=== PATIENT | male | born 1945 | race Caucasian/White ===

== ENCOUNTER → 2017-05-07 11:10 | Outpatient (CLI) | payer MEDICARE, OTHER, SELFPAY ==
--- NOTE | 2017-05-07 | TOBX_PTH ---
PATIENT: BRUCE BNAUELOS LOC: [facility] U#:[id number] AGE/SX: 79/M ROOM: RE05/07/[address]: Dr. Carlos Nichols DDS : 1945 BED: DIS: SPEC #: [id number] RECD: 05/07/17 10:10 STATUS: DELFIN JENS #: [id number] HILDA: 05/07/17 00:[address]: Carlos Nicohls DEPT: SURGICAL PATHOLOGY RECD BY: Ovidio Saeed ENTERED: 05/07/17 12:04 SP TYPE: TONGUE BX OTHR DR: Dr. Praveen Brown MD Tissues: Tongue, NOS Procedures: Special Stain Group I Surgery Specimen Level IV GMS Stain (control) HEADER OPERATION: Biopsy, left tongue PRE-OP DIAGNOSIS: Rule out significant pathology TISSUE SUBMITTED: Left tongue MICROSCOPIC DIAGNOSIS Left tongue, biopsy: Squamous mucosa with subepithelial chronic inflammation, focal parakeratosis and hyperkeratosis. Negative for malignancy in the submitted specimen. Special stain for fungi is negative for organisms; matched control is appropriate. FEDERICA:blanco 05/08/17 COMMENT Please make reference to previous specimen ([id number]) right lateral tongue, biopsy with diagnosis of extensive hyperkeratosis, focal parakeratosis and acanthosis. MICROSCOPIC DESCRIPTION Slides are reviewed. GROSS DESCRIPTION Received in fixative is one container labeled with the patient's name and designated tongue. The specimen consists of a piece of schrader mucosal tissue measuring 0.6 x 0.6 x 0.2 cm. The specimen is inked and submitted entirely in one cassette. It will be bisected at the time of embedding. / Mari 05/07/17 TC:3 CPT: 31150, 78590
== END ==
PROVIDERS: Family Provider Family Medicine; PCP Family Medicine; Visit Provider Dentist Oral and Maxillofacial Surgery
DX: K13.29 Other disturbances of oral epithelium, including tongue (principal)
CPT/HCPCS: 88305; 88312

== ENCOUNTER → 2017-08-07 08:39 | Outpatient (CLI) | payer MEDICARE, OTHER, SELFPAY ==
[2017-08-07 12:13] LABS: Absolute Lymphocyte Count 1.63 X10^3/ul (0.83-4.51); Absolute Neutrophil Count 3.6 X10^3/uL (2.0-7.7); Basophil# 0.19 X10^3/uL; Basophil% 2.9 % (0-1); Eosinophil# 0.44 X10^3/uL; Eosinophils% 6.7 % (0-5); Hematocrit 39.8 % (40-54); Lymphocyte # 1.63 X10^3/ul (4.0); Lymphocyte % 24.8 % (19-41); Mean Corp Hgb Conc 32.7 g/gl (32-36); Mean Corpuscular Hgb 30.3 pg (27.0-32.0); Mean Corpuscular Volume 92.8 fL (80-94); Mean Platelet Vol. 10.1 fl (6.2-12.0); Monocyte# 0.68 X10^3/uL; Monocyte% 10.4 % (0-10); Neutrophil # 3.62 X10^3/uL (2.7-7.7); Platelet Count 277 K/mm3 (150-450); RBC Distribution Width CV 12.2 % (11.6-14.6); RBC Distribution Width SD 40.8 fl (35.1-43.9); Red Blood Count 4.29 M/mm3 (4.6-6.2); White Blood Count 6.6 K/mm3 (4.4-11.0)
[2017-08-07 12:17] LABS: POSITIVE COUNT NO; POSITIVE DIFFERENTIAL NO; POSITIVE MORPHOLOGY NO
[2017-08-07 12:42] LABS: Vitamin D,25 Hydroxy 36.2 ng/mL (29.95-100.01)
[2017-08-07 13:00] LABS: Anion Gap 6 (5-15); BUN 18 mg/dL (7-18); BUN/Creat Ratio 16.5 RATIO (10-20); Calcium,Total 8.7 mg/dL (8.5-10.1); Chloride 104 mmol/L (98-107); Creatinine, Serum 1.09 mg/dL (0.70-1.30); EST Glomerular Filtration Rate 71 mL/min (>60); Est Glom Filt Rate - Afr Amer 86 mL/min (>60); Ferritin 54 ng/mL (26-388); Glucose 93 mg/dL (74-106); Iron 57 ug/dL (65-175); Sodium Level 137 mmol/L (136-145); T4 Free Direct 1.28 ng/dL (0.76-1.46); Thyroid Stim Hormone (TSH) 1.86 uIU/mL (0.358-3.74)
== END ==
PROVIDERS: Family Provider Family Medicine; PCP Family Medicine; Visit Provider Family Medicine
DX: D64.9 Anemia, unspecified (principal); I10 Essential (primary) hypertension; E03.9 Hypothyroidism, unspecified; E55.9 Vitamin D deficiency, unspecified
CPT/HCPCS: 36415; 80048; 82306; 82728; 83540; 84439; 84443; 85025

== ENCOUNTER 2018-03-22 01:15 | Emergency (ER) | payer MEDICARE, OTHER, SELFPAY ==
[2018-03-22 01:17] VITALS: BP 112/71; PULSE 62; RESP 16; TEMP 36.4; O2SAT 98; BMI 24.6
[2018-03-22 01:21] VITALS: PULSE 62; O2SAT 98
--- NOTE | 2018-03-22 01:38 | EKG12_ITS ---
Test Reason : SYNCOPE Blood Pressure : / mmHG Vent. Rate : 061 BPM Atrial Rate : 061 BPM P-R Int : 206 ms QRS Dur : 092 ms QT Int : 446 ms P-R-T Axes : 035 -22 027 degrees QTc Int : 448 ms Normal sinus rhythm Minimal voltage criteria for LVH, may be normal variant Borderline ECG Confirmed by SONA MADRIGAL, ALFONSO ([id number]), senior editor JOVAN KIRAN ([id number]) on 03/25/2018 2:04:59 PM Referred By: CHANDAN Confirmed By:ALFONSO MAGALLANES MD
--- NOTE | 2018-03-22 01:45 | ED.DCSUM_ITS ---
History of Present Illness Chief Complaint: Syncope Informant: Patient, Family Onset: - - JPTA Timing: Lasts - 1-2 min Quality: passed out Current Severity: gone Maximum Severity: Severe Associated Symptoms: lightheadedness Narrative: Patient was in bed, got up to use the toilet, on the way to the bathroom started feeling lightheaded, he fell in the bathroom before getting to the toilet, heard him fall and he did not answer. She checked on him and he was on the floor and unresponsive. He slowly came to, is not sure if he was awake or not before appearing to lose consciousness again, he slowly regained consciousness she called EMS. He states he feels fine except for a laceration to the lip that he sustained during the fall, and he feels tired. He states last night, he had 3 hours of sleep because of insomnia. He had an unremarkable work today. He had some alcoholic beverages with dinner tonight with his , had some water today but not a lot of fluids otherwise. No cardiac history. No prodromal symptoms other than the lightheadedness. Has a history of a thoracic aortic aneurysm that has been monitored with imaging every 6 months. He denies having any chest discomfort or dyspnea before or after the episode tonight. Denies any headache. No other pain except for his lip. - Past Medical History (1) Ascending aortic aneurysm Status: Chronic (2) Bicuspid aortic valve Status: Chronic (3) Ectopic atrial rhythm Status: Chronic (4) Hyperlipidemia Status: Chronic (5) Hypertension Status: Chronic (6) Mitral valve prolapse Status: Chronic (7) Nonrheumatic aortic valve insufficiency Status: Chronic (8) Nonrheumatic aortic valve stenosis Status: Chronic (9) Nonrheumatic mitral valve insufficiency Status: Chronic Past Medical History - Allergies and Home Meds Allergies/Adverse Reactions: Allergies No Known Allergies Allergy (Verified 03/22/18 01:38) Primary Care Physician: Praveen Brown MD [Primary Care Provider] - 5 Days for suture removal Doctors: Dr. Craven Lives: Spouse/ Significant Other Smoking Status: Former smoker Alcohol: Occasional Review of Systems General: Reports: Malaise. Denies: Chills, Fever, Sweats Eyes: Denies: Visual changes - bilaterally, Diplopia ENT: Reports: - - lower lip pain/laceration; no dental pain. Denies: Sore throat Cardiovascular: Denies: Chest pain, Palpitations Respiratory: Denies: Dyspnea, Cough, Dyspnea on exertion Gastrointestinal: Denies: Abdominal pain, Nausea, Vomiting, Diarrhea, Melena, Hematochezia Genitourinary: Denies: Dysuria, Hematuria, Frequency Musculoskeletal: Denies: Back pain, Swelling, Extremity Pain Skin: Reports: Wounds - lip lac. Denies: Rash Neurological: Denies: Headache, Weakness, Numbness Endocrine: Denies: Polyuria, Polydipsia Physical Exam Vital Signs/Narrative: Vital Signs Temp Pulse Resp BP Pulse Ox 03/22/18 01:21 62 98 03/22/18 01:17 97.5 F L 62 16 112/71 98 Inital Vital Signs reviewed: Yes General: Well nourished, Well developed Head: Normocephalic, Atraumatic Eyes: Perrl, EOMI ENT: Moist mucous membranes, No rhinorrhea, TM's clear. Negative for: Sinus tenderness - or other midfacial tenderness. abrasion left zygomatic arch w/o tenderness. no dental injury. mucosal lower lip macerated laceration and external linear horizontal lower left lip laceration w/o jacob border involvement. Lacerations communicate, are through and through. External laceration 3 cm, mucosal laceration 2 cm. No trismus. Neck: Supple, Nontender Cardiovascular: Regular rate, Regular rhythm, No murmurs Respiratory: No distress, CTA bilaterally, Chest nontender Abdomen: Soft, Nontender, Nondistended, Normal bowel sounds Back: Nontender, Normal Inspection. Negative for: Spinal tenderness Extremities: Nontender, No edema, - - FROM throughout all 4 exts Skin: Normal color, No rash, Trauma - 3cm clean linear lower lip laceration, full thickness. Neurological: Alert, Oriented x3, Cranial nerves II-XII grossly intact, Normal Strength, Normal Sensation Psychological: Normal affect Diagnostic/Tx/Re-eval Impressions Chest X-Ray 03/22/18 02:10 IMPRESSION: Mild chronic obstructive and interstitial change with no evidence of acute cardiopulmonary disease. Electronically Signed: Horace Tavarez MD at 2:46 EST Tel , Service support , 03/22/18 02:10 Chest PA and Lateral [RAD] Stat Laboratory Results 03/22/18 03/22/18 03/22/18 01:46 01:46 01:57 WBC 6.1 RBC 4.06 L Hgb 12.7 L Hct 37.0 L MCV 91.1 MCH 31.3 MCHC 34.3 RDW 12.3 RDW Differential 39.7 Plt Count 188 MPV 9.6 Immature Gran % (Auto) 0.200 Neut % (Auto) 44.9 L Lymph % (Auto) 37.8 Redwood % (Auto) 7.7 Eos % (Auto) 7.0 H Baso % (Auto) 2.4 H Absolute Neuts (auto) 2.8 Absolute Lymphs (auto) 2.32 Total Counted Not Reportable Sodium 138 Potassium 3.7 Chloride 104 Carbon Dioxide 25.0 Anion Gap 9 BUN 22 H Creatinine 0.95 Estim Creat Clear Calc 71.32 Est GFR (MDRD) Af Amer 100 Est GFR (MDRD) Non-Af 83 BUN/Creatinine Ratio 23.1 H Glucose 104 Calcium 8.1 L Troponin I < 0.015 Urine Color Urine Clarity Urine pH Ur Specific [place]year Urine Protein Urine Glucose (UA) Urine Ketones Urine Occult Blood Urine Nitrite Urine Bilirubin Urine Urobilinogen Ur Leukocyte Esterase Urine RBC Urine WBC Ur Squamous Epith Cells Urine Bacteria Hyaline Casts Urine Mucus POC Glucose 99 03/22/18 02:04 WBC RBC Hgb Hct MCV MCH MCHC RDW RDW Differential Plt Count MPV Immature Gran % (Auto) Neut % (Auto) Lymph % (Auto) Redwood % (Auto) Eos % (Auto) Baso % (Auto) Absolute Neuts (auto) Absolute Lymphs (auto) Total Counted Sodium Potassium Chloride Carbon Dioxide Anion Gap BUN Creatinine Estim Creat Clear Calc Est GFR (MDRD) Af Amer Est GFR (MDRD) Non-Af BUN/Creatinine Ratio Glucose Calcium Troponin I Urine Color Yellow Urine Clarity Sl. Cloudy Urine pH 5.0 Ur Specific [place] 1.025 Urine Protein 30 H Urine Glucose (UA) Normal Urine Ketones Negative Urine Occult Blood Negative Urine Nitrite Negative Urine Bilirubin Negative Urine Urobilinogen Normal Ur Leukocyte Esterase Negative Urine RBC 0-5 SEEN Urine WBC 0-5 SEEN Ur Squamous Epith Cells 0 SEEN Urine Bacteria 0 SEEN Hyaline Casts 5-10 SEEN Urine Mucus 0 SEEN POC Glucose - Rhythm Strip Rhythm Strip: Sinus Rhythm Rate: 61 Ectopy: None - EKG Initial EKG Interpretation: Sinus Rhythm, No Acute Injury Pattern, - - leftward axis Prior: Unchanged - Medical Decision Making Labs and EKG are unremarkable, with the exception of prerenal azotemia and a normal creatinine. This is consistent with mild dehydration, and as he usually does drink a good amount of water every day, he did not today, then drink alcohol, and he is on verapamil. My suspicion is that with standing up quickly, being mildly dehydrated, and not having the ability to initiate a tachycardic reflex when becoming upright, he became lightheaded which led to a syncopal episode. He was given a liter of fluid and felt better. His laceration was repaired. It was through and through and all repaired, so placed on amoxicillin for infection prophylaxis, he is scheduled to go to the dentist in 4 days, and has a dose of amoxicillin to take the morning of, I will prescribe him medicine to get him up until that point, which should be sufficient. I think he is stable for discharge home and close outpatient follow-up, he is comfortable with that plan and feeling better when walking on discharge. Procedures - Lacerations lower lip Length: 5 cm - total Depth: Sub Q - [id number] Shape: Stellate - skin linear, mucosal is irregular Prep: Sterile Conditions, Shure-Clens, Chlorhexadine Laceration repair: Irrigated, Lidocaine - 5cc, Local Irrigated (ml): 60 Suture Information: Vicryl - 4-0 #2, deep/buried, Ethilon - 6-0 #7, external, Simple, - - chromic gut, 4-0 #2, mucosal Comment: total #11 sutures, 3 layers ED Disposition - Plan for ED Patient: Disposition: Home or Assisted Living Chief Complaint: Syncope Diagnosis: Syncope, Dehydration, Laceration of lip Instructions: ED Hypotension Orthostatic, ED Laceration Mouth Prescriptions: Amoxicillin [Amoxil] 500 mg PO Q8H #9 cap Referrals: Praveen Brown MD [Primary Care Provider] - 5 Days for suture removal Additional Instructions: Take prescribed amoxicillin until gone, then the doses that you were supposed to take Saturday morning as prescribed. Drink plenty of fluids next couple days.
[2018-03-22] MEDS: 0.9% Normal Saline 1,000 ML 999 ML IV (01:48)
[2018-03-22 01:53] VITALS: BP 115/66; BP 118/65; PULSE 59; PULSE 64
[2018-03-22 02:00] LABS: Absolute Lymphocyte Count 2.32 X10^3/ul (0.83-4.51); Absolute Neutrophil Count 2.8 X10^3/uL (2.0-7.7); Basophil# 0.15 X10^3/uL; Basophil% 2.4 % (0-1); Eosinophil# 0.43 X10^3/uL; Hemoglobin 12.7 g/dl (13.0-16.5); Lymphocyte # 2.32 X10^3/ul (4.0); Lymphocyte % 37.8 % (19-41); Mean Corp Hgb Conc 34.3 g/gl (32-36); Mean Corpuscular Hgb 31.3 pg (27.0-32.0); Mean Corpuscular Volume 91.1 fL (80-94); Mean Platelet Vol. 9.6 fl (6.2-12.0); Monocyte# 0.47 X10^3/uL; Monocyte% 7.7 % (0-10); Neutrophil # 2.76 X10^3/uL (2.7-7.7); Neutrophil % 44.9 % (47-70); POSITIVE COUNT NO; POSITIVE DIFFERENTIAL NO; POSITIVE MORPHOLOGY NO; Platelet Count 188 K/mm3 (150-450); RBC Distribution Width CV 12.3 % (11.6-14.6); RBC Distribution Width SD 39.7 fl (35.1-43.9); Red Blood Count 4.06 M/mm3 (4.6-6.2); White Blood Count 6.1 K/mm3 (4.4-11.0)
[2018-03-22 02:06] LABS: Bedside Glucose 99 mg/dL (70-110)
[2018-03-22 02:07] LABS: Bacteria 0 SEEN /hpf (None Seen); Mucous, Urine 0 SEEN /hpf (<or=2+); Squamous Epithelial Cells - UA 0 SEEN /hpf (0-5)
[2018-03-22 02:08] LABS: Color, Urine Yellow (Yellow); Glucose, Dipstick Normal (Normal); Ketone-Dipstick Negative (Negative); Leukocyte Esterase-Dipstick Negative /ul (Negative); Nitrite-Dipstick Negative (Negative); Occult Blood-Urine Negative /ul (Negative); Protein-Dipstick 30 mg/dl (Negative); Specific Gravity, Urine 1.025 (1.002-1.030); Urine Bilirubin Dipstick Negative (Negative); Urine Clarity Sl. Cloudy (Clear); Urine Urobilinogen Normal (Normal)
--- NOTE | 2018-03-22 02:10 | RAD_ITS ---
STUDY: X-RAY CHEST REASON FOR EXAM: Male, 72 years old. Status post syncope TECHNIQUE: PA and lateral views of the chest. COMPARISON: None. FINDINGS: Hyperexpansion of the lungs. Mild prominence of interstitial lung markings at the lung bases. No confluent airspace opacity. Calcified nodule in the left suprahilar region on the AP view and in the retrosternal clear space seen on the lateral view. No pleural effusion or pneumothorax. Normal size heart. Normal mediastinum and payton. Normal visualized pulmonary arteries. There is atherosclerotic calcification of the aortic arch . Normal visualized thoracic spine. Normal visualized ribs, clavicles, and shoulders. There is no demonstrated abnormality of the visualized soft tissue structures of the upper abdomen. RAD/Chest PA and Lateral IMPRESSION: Mild chronic obstructive and interstitial change with no evidence of acute cardiopulmonary disease. Electronically Signed: Horace Tavarez MD at 2:46 EST Tel , Service support ,
[2018-03-22 02:13] LABS: Anion Gap 9 (5-15); BUN 22 mg/dL (7-18); BUN/Creat Ratio 23.1 RATIO (10-20); Calcium,Total 8.1 mg/dL (8.5-10.1); Chloride 104 mmol/L (98-107); Creatinine, Serum 0.95 mg/dL (0.70-1.30); EST Glomerular Filtration Rate 83 mL/min (>60); Est Glom Filt Rate - Afr Amer 100 mL/min (>60); Estimated Creatinine Clearance 71.32 ml/min; Glucose 104 mg/dL (74-106); Potassium 3.7 mmol/L (3.5-5.1); Sodium Level 138 mmol/L (136-145)
[2018-03-22 02:18] LABS: Hyaline Cast 5-10 SEEN /lpf (0-5); Red Blood Cells-Urine 0-5 SEEN /hpf (0-5); White Blood Cells 0-5 SEEN /hpf (0-5)
[2018-03-22 03:24] VITALS: BP 104/63; PULSE 71; RESP 16; O2SAT 96
[2018-03-22 05:00] VITALS: BP 114/73; PULSE 72; RESP 17; O2SAT 94
[2018-03-22 06:49] VITALS: BP 121/74; PULSE 82; RESP 18; O2SAT 98
--- NOTE | 2018-03-22 06:50 | ED.RN ---
THIS NURSE REVIEWED D/C INSTRUCTIONS WITH PT AND . PT VERBALIZED UNDERSTANDING OF INSTRUCTIONS. IV D/C. IV CATHETER INTACT. PT TOLERATED WELL. PT DENIES FURTHER NEEDS OR QUESTIONS AT THIS TIME. PT ASSISTED OUT TO VEHICLE VIA W/C
--- OUTSIDE RECORDS SUMMARY | 2018-05-16 18:10 | XMS RPT_ITS ---
:1945 Author Organization OH[facility] Care Team Providers Name Role Phone Carlos Nichols Attending Unavailable Carlos Nichols Referring Unavailable Praveen Brown Primary Care Unavailable Praveen Brown Attending Unavailable Praveen Brown Primary Care Unavailable Norris Craven Attending Unavailable Praveen Brown Referring Unavailable Norris Craven Attending Unavailable Praveen Brown Referring Unavailable Glynn Penny Attending Unavailable Praveen Brown Referring Unavailable Praveen Brown Primary Care Unavailable JUANJO HAWLEY Attending Unavailable PROBLEMS PROBLEMS DATE TYPE CONDITION / CODE ATTENDING STATUS SOURCE 08/07/2017 Unknown D64.9 - Anemia, Praveen Brown Active [place] unspecified / Community D64.9(ICD-10) Hospital Repository 08/07/2017 Unknown I10 - Essential Praveen Brown Active [place] (primary) Community hypertension / Hospital I10(ICD-10) Repository 08/07/2017 Unknown E03.9 - Praveen Brown Active [place] Hypothyroidism, Community unspecified / Hospital E03.9(ICD-10) Repository 08/07/2017 Unknown E55.9 - Vitamin D Stephanie Praveen Active [place] deficiency, Community unspecified / Hospital E55.9(ICD-10) Repository PROCEDURES PROCEDURES No Procedure Records FoundRESULTS RESULTS 12 LEAD ELECTROCARDIOGRAM Observed: 03/25/2018 Status: F Source: [place] 2:05 PM [facility] REPOSITORY [facility] Cardiovascular Services [address] [place] [address] 12 Lead EKG 03/22/18 0122 MR#: [id number] Acct: [id number] Name: BRUCE BANUELOS Rep #: [id number] : 1945 72 From: Nate Jordan MD Attending Dr: Status: DEP ER Ordering Dr: Juanjo Hawley MD Date: 03/22/18 Location: ED Sex: M C Admitted: Test Reason : SYNCOPE Blood Pressure : / mmHG Vent. Rate : 061 BPM Atrial Rate : 061 BPM P-R Int : 206 ms QRS Dur : 092 ms QT Int : 446 ms P-R-T Axes : 035 -22 027 degrees QTc Int : 448 ms Normal sinus rhythm Minimal voltage criteria for LVH, may be normal variant Borderline ECG Confirmed by NATE JORDAN MD ([id number]), department editor JOVAN KIRAN ([id number]) on 03/25/2018 2:04:59 PM Referred By: CHANDAN Confirmed By:NATE JORDAN MD 03/25/18 1405 Date Nate Jordan MD CC: JUANJO HAWLEY MD; Praveen Brown MD Signed EMERGENCY DEPARTMENT Observed: 03/22/2018 Status: F Source: MANJU SUMMARY 6:18 AM [facility] Medical Records Department [address] [place] [address] Emergency Department Summary 03/22/18 0141 MR#: [id number] Acct: [id number] Name: BRUCE BANUELOS Rep #: [id number] : 1945 72 From: Juanjo Hawley MD PCP: Praveen Brown MD Status: REG ER History of Present Illness Chief Complaint: Syncope Informant: Patient, Family Onset: - - JPTA Timing: Lasts - 1-2 min Quality: passed out Current Severity: gone Maximum Severity: Severe Associated Symptoms: lightheadedness Narrative: Patient was in bed, got up to use the toilet, on the way to the bathroom started feeling lightheaded, he fell in the bathroom before getting to the toilet, heard him fall and he did not answer. She checked on him and he was on the floor and unresponsive. He slowly came to, is not sure if he was awake or not before appearing to lose consciousness again, he slowly regained consciousness she called EMS. He states he feels fine except for a laceration to the lip that he sustained during the fall, and he feels tired. He states last night, he had 3 hours of sleep because of insomnia. He had an unremarkable work today. He had some alcoholic beverages with dinner tonight with his , had some water today but not a lot of fluids otherwise. No cardiac history. No prodromal symptoms other than the lightheadedness. Has a history of a thoracic aortic aneurysm that has been monitored with imaging every 6 months. He denies having any chest discomfort or dyspnea before or after the episode tonight. Denies any headache. No other pain except for his lip. - Past Medical History (1) Ascending aortic aneurysm Status: Chronic (2) Bicuspid aortic valve Status: Chronic (3) Ectopic atrial rhythm Status: Chronic (4) Hyperlipidemia Status: Chronic (5) Hypertension Status: Chronic (6) Mitral valve prolapse Status: Chronic (7) Nonrheumatic aortic valve insufficiency Status: Chronic (8) Nonrheumatic aortic valve stenosis Status: Chronic (9) Nonrheumatic mitral valve insufficiency Status: Chronic Past Medical History - Allergies and Home Meds Allergies/Adverse Reactions: Allergies No Known Allergies Allergy (Verified 03/22/18 01:38) Primary Care Physician: Praveen Brown MD [Primary Care Provider] - 5 Days for suture removal Doctors: Dr. Craven Lives: Spouse/ Significant Other Smoking Status: Former smoker Alcohol: Occasional Review of Systems General: Reports: Malaise. Denies: Chills, Fever, Sweats Eyes: Denies: Visual changes - bilaterally, Diplopia ENT: Reports: - - lower lip pain/laceration; no dental pain. Denies: Sore throat Cardiovascular: Denies: Chest pain, Palpitations Respiratory: Denies: Dyspnea, Cough, Dyspnea on exertion Gastrointestinal: Denies: Abdominal pain, Nausea, Vomiting, Diarrhea, Melena, Hematochezia Genitourinary: Denies: Dysuria, Hematuria, Frequency Musculoskeletal: Denies: Back pain, Swelling, Extremity Pain Skin: Reports: Wounds - lip lac. Denies: Rash Neurological: Denies: Headache, Weakness, Numbness Endocrine: Denies: Polyuria, Polydipsia Physical Exam Vital Signs/Narrative: Vital Signs 03/22/18 01:21 62 98 03/22/18 01:17 97.5 F L 62 16 112/71 98 Inital Vital Signs reviewed: Yes General: Well nourished, Well developed Head: Normocephalic, Atraumatic Eyes: Perrl, EOMI ENT: Moist mucous membranes, No rhinorrhea, TM's clear. Negative for: Sinus tenderness - or other midfacial tenderness. abrasion left zygomatic arch w/o tenderness. no dental injury. mucosal lower lip macerated laceration and external linear horizontal lower left lip laceration w/o jacob border involvement. Lacerations communicate, are through and through. External laceration 3 cm, mucosal laceration 2 cm. No trismus. Neck: Supple, Nontender Cardiovascular: Regular rate, Regular rhythm, No murmurs Respiratory: No distress, CTA bilaterally, Chest nontender Abdomen: Soft, Nontender, Nondistended, Normal bowel sounds Back: Nontender, Normal Inspection. Negative for: Spinal tenderness Extremities: Nontender, No edema, - - FROM throughout all 4 exts Skin: Normal color, No rash, Trauma - 3cm clean linear lower lip laceration, full thickness. Neurological: Alert, Oriented x3, Cranial nerves II-XII grossly intact, Normal Strength, Normal Sensation Psychological: Normal affect Diagnostic/Tx/Re-eval Impressions Chest X-Ray 03/22/18 02:10 IMPRESSION: Mild chronic obstructive and interstitial change with no evidence of acute cardiopulmonary disease. Electronically Signed: Horace Tavarez MD at 2:46 EST Tel , Service support , 03/22/18 02:10 Chest PA and Lateral [RAD] Stat Laboratory Results WBC 6.1 RBC 4.06 L Hgb 12.7 L Hct 37.0 L MCV 91.1 MCH 31.3 MCHC 34.3 RDW 12.3 RDW Differential 39.7 - Rhythm Strip Rhythm Strip: Sinus Rhythm Rate: 61 Ectopy: None - EKG Initial EKG Interpretation: Sinus Rhythm, No Acute Injury Pattern, - - leftward axis Prior: Unchanged - Medical Decision Making Labs and EKG are unremarkable, with the exception of prerenal azotemia and a normal creatinine. This is consistent with mild dehydration, and as he usually does drink a good amount of water every day, he did not today, then drink alcohol, and he is on verapamil. My suspicion is that with standing up quickly, being mildly dehydrated, and not having the ability to initiate a tachycardic reflex when becoming upright, he became lightheaded which led to a syncopal episode. He was given a liter of fluid and felt better. His laceration was repaired. It was through and through and all repaired, so placed on amoxicillin for infection prophylaxis, he is scheduled to go to the dentist in 4 days, and has a dose of amoxicillin to take the morning of, I will prescribe him medicine to get him up until that point, which should be sufficient. I think he is stable for discharge home and close outpatient follow-up, he is comfortable with that plan and feeling better when walking on discharge. Procedures - Lacerations lower lip Length: 5 cm - total Depth: Sub Q - [id number] Shape: Stellate - skin linear, mucosal is irregular Prep: Sterile Conditions, Shure-Clens, Chlorhexadine Laceration repair: Irrigated, Lidocaine - 5cc, Local Irrigated (ml): 60 Suture Information: Vicryl - 4-0 #2, deep/buried, Ethilon - 6-0 #7, external, Simple, - - chromic gut, 4-0 #2, mucosal Comment: total #11 sutures, 3 layers ED Disposition - Plan for ED Patient: Disposition: Home or Assisted Living Chief Complaint: Syncope Diagnosis: Syncope, Dehydration, Laceration of lip Instructions: ED Hypotension Orthostatic, ED Laceration Mouth Prescriptions: Amoxicillin [Amoxil] 500 mg PO Q8H #9 cap Referrals: Praveen Brown MD [Primary Care Provider] - 5 Days for suture removal Additional Instructions: Take prescribed amoxicillin until gone, then the doses that you were supposed to take Saturday morning as prescribed. Drink plenty of fluids next couple days. What to do if you have Problems For any increased pain, shortness of breath, bleeding, nausea or vomiting, chest pain, or any unexpected problems, contact your Primary Care Provider. Call [facility] ([phone]) or report to the closest Emergency Room. Call 911 if necessary. 03/22/18 0618 <Electronically signed by Juanjo Hawley MD> Date Juanjo Hawley MD Cosigner Signature (If Indicated): Date CC: Praveen Brown MD URINALYSIS, COMPLETE Collected: 03/22/2018 Status: F Source: MANJU 2:04 AM [facility] REPOSITORY Order Comment: How was Urine Obtained? 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 Cloudy LAB L400.3200 Normal mg/dl Normal GLUCOSE, UR Normal LAB L400.3300 Negative mg/dL Normal BILIRUBIN URINE Negative LAB L400.3400 Negative mg/dl Normal KETONE UR Negative LAB L400.3465 1.002-1.030 Normal SP.GR. DIPSTX 1.025 LAB L400.3550 5.0 - 8.0 pH UR Normal 5.0 LAB L400.3600 Negative mg/dl High PROT 30 DIPSTX LAB L400.3700 Normal mg/dl Normal UROBILI Normal LAB L400.3750 Negative Normal NITRITE UR Negative LAB L400.3780 Negative /ul Normal OCCULT BLOOD-UR Negative LAB L400.3800 Negative /ul LEUK Normal ESTERASE Negative LAB L400.4050 0-5 /hpf WBC Normal 0-5 SEEN LAB L400.4100 0-5 /hpf Normal RBC-UA 0-5 SEEN LAB L400.4150 0-5 /hpf SQUAM 0 Normal EPI SEEN LAB L400.4300 None Seen /hpf 0 Normal BACTERIA SEEN LAB L400.4350 <or=2+ /hpf 0 Normal MUCUS, URINE SEEN LAB L400.4400 0-5 /lpf Normal HYALINE CAST 5-10 SEEN Performed By: #### L400.0001 #### [facility] [address] [place], [place], [address] BEDSIDE GLUCOSE Collected: 03/22/2018 Status: F Source: [place] 1:57 AM [facility] REPOSITORY TYPE CODE TESTS RESULT OUT OF RANGE REFERENCE UNITS LAB L501.080 70-110 mg/dL Normal BEDSIDE GLU 99 Result Comment: MANAGEMENT OF PATIENT CARE PER NURSING PROTOCOL Performed By: #### L501.080 #### [facility] Point of Care [address] [facility] [place] [address] CBC W/DIFF, AUTOMATED Collected: 03/22/2018 Status: F Source: [place] 1:46 AM [facility] REPOSITORY TYPE CODE TESTS RESULT OUT OF RANGE REFERENCE UNITS LAB L100.1000 4.4-11.0 K/mm3 Normal WBC 6.1 LAB L100.1200 4.6-6.2 M/mm3 Low RBC 4.06 LAB L100.1300 13.0-16.5 g/dl Low HGB 12.7 LAB L100.1400 40-54 % Low HCT 37.0 LAB L100.1500 80-94 fL Normal MCV 91.1 LAB L100.1600 27.0-32.0 pg Normal MCH 31.3 LAB L100.1700 32-36 g/gl Normal MCHC 34.3 LAB L100.1810 11.6-14.6 % Normal RDW CV 12.3 LAB L100.1820 35.1-43.9 fl Normal RDW SD 39.7 LAB L100.1900 150-450 K/mm3 Normal PLT 188 LAB L100.2000 6.2-12.0 fl Normal MPV 9.6 LAB L100.2100 47-70 % Low NEUT% 44.9 LAB L100.2200 19-41 % Normal LY% 37.8 LAB L100.2300 0-10 % Normal MONO% 7.7 LAB L100.2400 0-5 % High EO% 7.0 LAB L100.2500 0-1 % High BASO% 2.4 LAB L100.2550 0.0-0.9 % Normal IM GRAN % 0.200 Result Comment: IG% - Immature Granulocytes (promyelocytes, myelocytes and metamyelocytes) > 1% indicates that a LEFT SHIFT is Present. LAB L100.2620 2.0-7.7 X10 3/uL Normal Absolute Neut 2.8 LAB L100.2720 0.83-4.51 X10 3/ul Normal Absolute Lymph 2.32 Performed By: #### L100.0100 #### [facility] [address] [place], [place], [address] BASIC METABOLIC Collected: 03/22/2018 Status: F Source: [place] PROFILE (BMP) 1:46 AM [facility] REPOSITORY TYPE CODE TESTS RESULT OUT OF RANGE REFERENCE UNITS LAB L501.0100 74-106 mg/dL Normal GLU 104 Result Comment: Fasting Glucose result from 100 to 125 mg/dL suggests IMPAIRED HOMEOSTASIS per A.D.A. criteria. Please note revised GLUCOSE reference range effective 2017. LAB L501.1000 7-18 mg/dL High BUN 22 LAB L501.1100 0.70-1.30 mg/dL Normal CREAT,SERUM 0.95 Result Comment: The validity of the calculated GFR AND GFRAA in patients over 70 years has not been determined. Clinical correlation is essential. LAB L501.1110 >60 mL/min Normal EST GFR 83 Result Comment: Non- GFR Calc LAB L501.1115 >60 mL/min Normal EST GFR - AA 100 Result Comment: GFR Calc LAB L501.1255 ml/min Normal Estimated CRCL 71.32 LAB L501.1300 10-20 RATIO High BUN/CRE 23.1 LAB L501.2200 8.5-10 mg/dL Low .1 CA 8.1 LAB L501.5300 136-14 mmol/L Normal 5 NA 138 LAB L501.5600 3.5-5. mmol/L Normal 1 K 3.7 LAB L501.5900 98-107 mmol/L Normal CL 104 LAB L501.6100 21.0-3 mmol/L Normal 2.0 CO2 25.0 LAB L501.6200 5-15 Normal GAP 9 Performed By: #### L500.2500, L501.4010 #### [facility] [address] [place], [address] TROPONIN-I Collected: 03/22/2018 Status: F Source: [place] 1:46 AM [facility] REPOSITORY TYPE CODE TESTS RESULT OUT OF RANGE REFERENCE UNITS LAB L501.4010 <0.045 ng/mL Normal < 0.015 TROPONIN-I Result Comment: TROPONIN-I EXPECTED VALUES <0.045 Negative 0.045 - 0.590 Consistent with Cardiac Damage > OR = 0.600 Critical Value Not every elevated troponin is indicative of AZ. These values should be used with clinical judgement in examining the patient's clinical picture for diagnosis. To establish a diagnosis of AZ versus myocardial injury, there must be a demonstrated rise and/or fall in the troponin values, in addition to ischemic symptoms, EKG changes, new regional wall motion abnormality, and/or angiographical evidence. PLEASE NOTE: REFERENCE RANGES EDITED 17 Performed By: #### L500.2500, L501.4010 #### [facility] [address] [place], [address] CHEST PA AND LATERAL Observed: 03/22/2018 Status: F Source: [place] 1:41 AM [facility] REPOSITORY [facility] Imaging Services [address] [place] [address] Chest PA and Lateral MR#: [id number] Acct: [id number] Name: VINBRUCE Keivn Rep #: [id number] : 1945 M 72 From: Horace Tavarez MD PCP: Praveen Brown MD Status: REG ER Study: Chest PA and Lateral Date of Exam: 03/22/18 Exam# [id number] Ordering Dr: Juanjo Hawley MD STUDY: X-RAY CHEST REASON FOR EXAM: Male, 72 years old. Status post syncope TECHNIQUE: PA and lateral views of the chest. COMPARISON: None. FINDINGS: Hyperexpansion of the lungs. Mild prominence of interstitial lung markings at the lung bases. No confluent airspace opacity. Calcified nodule in the left suprahilar region on the AP view and in the retrosternal clear space seen on the lateral view. No pleural effusion or pneumothorax. Normal size heart. Normal mediastinum and payton. Normal visualized pulmonary arteries. There is atherosclerotic calcification of the aortic arch . Normal visualized thoracic spine. Normal visualized ribs, clavicles, and shoulders. There is no demonstrated abnormality of the visualized soft tissue structures of the upper abdomen. RAD/Chest PA and Lateral IMPRESSION: Mild chronic obstructive and interstitial change with no evidence of acute cardiopulmonary disease. Electronically Signed: Horace Tavarez MD at 2:46 EST Tel , Service support , CC: JUANJO HAWLEY MD; Praveen Brown MD [employer]: Signed CARDIOLOGY VISIT Observed: 10/24/2017 Status: F Source: [place] REPORT 4:03 PM [facility] REPOSITORY [facility] [address] [place] [address] OFFICE VISIT Date of Service: 10/24/17 MR#: [id number] Acct: [id number] Name: BRUCE BANUELOS Rep #: [id number] : 1945 Provider: CELSO Penny Age/Sex: 71/M Location: [facility] Status: Signed HPI HPI Details: BRUCE BANUELOS, is a 71 M who presents to the office today for a cardiovascular outpatient follow-up. He has history of acsending aortic aneurysm, valvular heart disease with bicuspid aortic valve and aortic valve stenosis and aortic valve insufficiency, mitral valve prolapse with mitral valve regurgitation, ectopic atrial rhythm with transient 2-1 AV block, hypertension, and hyperlipidemia. Pt. denies chest, arm, jaw, or neck discomfort. His exercise tolerance is stable. Pt. denies symptoms of CHF, palpitations, lightheadedness, dizziness, near syncope, or syncopal episodes. Pt. denies edema or claudication issues. Pt. denies orthopnea, PND, fever, chills, blood in urine, blood in stool, myalgia, or unexplainable fatigue. He states waking up in the middle night with his right hand going numb. 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 Is patient in pain?: No Allergies No Known Allergies Allergy (Unverified 10/24/17 15:03) Medications aspirin 81 mg chewable tablet 81 mg PO QDAY #90 tab 10/01/17 [Rx Confirmed 10/24/17] cholecalciferol (vitamin D3) 2,000 unit capsule 2,000 unit PO QDAY #90 cap 10/01/17 [Rx Confirmed 10/24/17] levothyroxine 100 mcg tablet 100 mcg PO QDAY #90 tab 10/01/17 [Rx Confirmed 10/24/17] prazosin 5 mg capsule 5 mg PO QDAY #90 cap 10/01/17 [Rx Confirmed 10/24/17] ramipril 5 mg capsule 5 mg PO QDAY #90 cap 10/01/17 [Rx Confirmed 10/24/17] verapamil ER (SR) 120 mg tablet,extended release 120 mg PO QDAY #90 tab 10/01/17 [Rx Confirmed 10/24/17] vitamin B complex tablet 1 tab PO QDAY #90 tab 10/01/17 [Rx Confirmed 10/24/17] calcium 600 mg-D3 800 unit-mag11 50 pu-nvmf-ehxljr-austin-s.borat tablet 1 tab PO QDAY tab 10/24/17 [History] [facility] Medical History Ectopic atrial rhythm (Chronic) Mitral valve prolapse (Chronic) Nonrheumatic mitral valve insufficiency (Chronic) Nonrheumatic aortic valve insufficiency (Chronic) Nonrheumatic aortic valve stenosis (Chronic) Bicuspid aortic valve (Chronic) Ascending aortic aneurysm (Chronic) Surgical History Right shoulder (Resolved 2014) Family History Father CAD (coronary artery disease) Mother Liver carcinoma Social History Smoking Status: Former smoker ROS Const Const: Negative for weakness, body ache, fever(s), chills or fatigue ENT ENT: Negative for dizziness Cardio Chest Pain: No Palpitations: No Edema: None Muscle aches with walking: None Resp Respiratory: Negative for SOB with activity, SOB at rest, SOB orthopnea\SOB lying down or paroxysmal nocturnal dyspnea GI GI: Negative nausea, black,tarry stools, bright, red blood in stools or vomiting blood/hematemesis : Negative for hematuria or frequent nighttime urination/ nocturia Musc Musc: Negative for muscle aches/ myalgia Skin Skin: Negative non-healing lesions or rash Neuro Neuro: Positive for other (right arm numbness ); negative for lightheadedness, near syncope, syncope, orthostatic symptoms, weakness or dizziness Endo Endo: Negative for fatigue Allergy Allergy/Immunology: Negative for rash Cardiology Exam Const Appearance: cooperative, healthy appearing, comfortable and no acute distress Orientation: alert, awake and oriented x3 Head Head: normal to inspection Ears: hearing grossly normal bilaterally Nose: external nose normal Face and Sinus: face symmetric Mouth: oral mucosae normal Eyes General: appearance normal, both eyes and all related structures Eyelids: eyelids normal Neck Neck: no JVD and normal visual inspection Carotids: normal carotid upstroke Chest Chest inspection: normal inspection of the chest and normal respiratory effort; negative cough Auscultation: Bilateral: Clear to Auscultation Cardio Rate: regular rate Rhythm: regular rhythm Heart sounds: S1 normal, S2 normal and murmur; negative rub or gallop Murmur: Grade 2/6, LLSB and RLSB GI GI: normal to inspection Neuro General: alert, awake, oriented x3 and CN's II-XI intact bilaterally Skin Skin: no rashes or lesions noted Extremities Pulses: Normal: Right Posterior Tibial Pulse, Left Posterior Tibial Pulse, Right Radial Pulse, Left Radial Pulse Lower Extremity Edema: None: Bilateral Psych Psychological: normal affect Supplemental Info Echocardiogram from June 2015 showed an estimated ejection fraction of 65%, apical false tendon noted, mildly enlarged left atrium, mildly enlarged right atrium, hypermobile atrial septum, mild mitral valve prolapse, posterior leaflet, mild diffuse mitral thickening, mild to moderate mitral valve insufficiency, trivial tricuspid valve insufficiency, bicuspid aortic valve, moderate aortic stenosis, mild to moderately dilated aortic root of 4.3 cm, RVSP of 30 mmHg, and diastolic dysfunction. CT scan of chest with contrast in July 2016 showed aneurysmal dilatation of the descending thoracic aorta measuring 4.2 cm in transverse dimension. Assessment AND Plan 1. Ascending aortic aneurysm I71.2 Plan Patient's most recent CT scan in July 2016 showed stable ascending aortic aneurysm measuring 4.2 cm. Patient denies any chest pain, back pain, or lower extremity weakness. His heart rate and blood pressure are well-controlled today in office. He will continue current medications and we will continue to monitor. 2. Bicuspid aortic valve Q23.1 Plan Patient's echocardiogram from June 2015 showed bicuspid aortic valve with moderate aortic valve stenosis. He will continue with antibiotic prophylaxis prior to dental procedures. His activity level has remained stable. He will continue current medications and we will continue to monitor this. 3. Nonrheumatic aortic valve stenosis I35.0 Plan His echocardiogram from June 2015 showed moderate aortic stenosis. Patient denies any chest pain, syncope, or activity intolerance. He will continue current medications and we will continue to monitor this through history, exam, and repeat echocardiogram as needed. 4. Nonrheumatic mitral valve insufficiency I34.0 Plan Echocardiogram from June 2015 showed mild to moderate mitral valve insufficiency. Patient denies any activity intolerance or lower extremity pedal edema. He will continue current medications and we will continue to monitor this through history, exam, and repeat echocardiogram as needed 5. Mitral valve prolapse I34.1 Plan Patient's echocardiogram from June 2015 showed mild mitral valve prolapse. This does not appear to be causing any acute decompensation. He will continue current medications and we will continue to monitor this. 6. 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 Plan Patient denies any symptomatic recurrence of this. He will continue with current medications and we will continue to monitor this. 7. Essential hypertension I10 Plan Patient's blood pressure is well-controlled today in the office. We will continue to monitor this. We will not make any medication regimen changes. 8. Pure hypercholesterolemia E78.00; E78.0 Plan Patient states this is being monitored by primary care physician. He states that his most recent report was good. He has discontinued niacin due to potential side effects. Plan Detail Additional Comments Thank you for allowing us to participate in the patients plan of care, if you have any questions please do not hesitate to call. This note was generated using a voice recognition system and there may be incorrect words, spelling or punctuation that were not noted when reviewing the office note prior to saving. 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 I34.0 Mitral valve prolapse I34.1 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 Essential hypertension I10 Hypertension type: essential hypertension Pure hypercholesterolemia E78.00; E78.0 Hyperlipidemia type: pure hypercholesterolemia 10/24/17 1603 <Electronically signed by Glynn PICHARDO> Date Glynn PICHARDO Cosigner Signature: Date (if applicable) CC: Praveen Brown MD CBC W/DIFF, AUTOMATED Collected: 08/07/2017 Status: F Source: MANJU 8:43 AM [facility] REPOSITORY TYPE CODE TESTS RESULT OUT OF RANGE REFERENCE UNITS LAB L100.1000 4.4-11.0 K/mm3 Normal WBC 6.6 LAB L100.1200 4.6-6.2 M/mm3 Low RBC 4.29 LAB L100.1300 13.0-16.5 g/dl Normal HGB 13.0 LAB L100.1400 40-54 % Low HCT 39.8 LAB L100.1500 80-94 fL Normal MCV 92.8 LAB L100.1600 27.0-32.0 pg Normal MCH 30.3 LAB L100.1700 32-36 g/gl Normal MCHC 32.7 LAB L100.1810 11.6-14.6 % Normal RDW CV 12.2 LAB L100.1820 35.1-43.9 fl Normal RDW SD 40.8 LAB L100.1900 150-450 K/mm3 Normal PLT 277 LAB L100.2000 6.2-12.0 fl Normal MPV 10.1 LAB L100.2100 47-70 % Normal NEUT% 55.0 LAB L100.2200 19-41 % Normal LY% 24.8 LAB L100.2300 0-10 % High MONO% 10.4 LAB L100.2400 0-5 % High EO% 6.7 LAB L100.2500 0-1 % High BASO% 2.9 LAB L100.2550 0.0-0.9 % Normal IM GRAN % 0.200 Result Comment: IG% - Immature Granulocytes (promyelocytes, myelocytes and metamyelocytes) > 1% indicates that a LEFT SHIFT is Present. LAB L100.2620 2.0-7.7 X10 3/uL Normal Absolute Neut 3.6 LAB L100.2720 0.83-4.51 X10 3/ul Normal Absolute Lymph 1.63 Performed By: #### L100.0100 #### [facility] [address] [place], [place], [address] VITAMIN D,25 HYDROXY Collected: 08/07/2017 Status: F Source: MANJU 8:43 AM [facility] REPOSITORY TYPE CODE TESTS RESULT OUT OF RANGE REFERENCE UNITS LAB L506.1000 29.95-100.01 ng/mL Normal Vitamin D 36.2 25-OH Result Comment: Vitamin D 25(OH) Status Range Deficiency <20 ng/mL (50nmol/L) Insuffciency 20 - 30 ng/mL (50 - 75 nmol/L) Sufficiency 30 - 100 ng/mL (75 - 250 nmol/L) Toxicity >100 ng/mL (>250 nmol/L) Performed By: #### L506.1000 #### [facility] [address] [place], [place], [address] BASIC METABOLIC Collected: 08/07/2017 Status: F Source: MANJU PROFILE (BMP) 8:43 AM [facility] REPOSITORY TYPE CODE TESTS RESULT OUT OF RANGE REFERENCE UNITS LAB L501.0100 74-106 mg/dL Normal GLU 93 Result Comment: Please note revised GLUCOSE reference range effective 2017. LAB L501.1000 7-18 mg/dL Normal BUN 18 LAB L501.1100 0.70-1.30 mg/dL Normal CREAT,SERUM 1.09 Result Comment: The validity of the calculated GFR AND GFRAA in patients over 70 years has not been determined. Clinical correlation is essential. LAB L501.1110 >60 mL/min Normal EST GFR 71 Result Comment: Non- GFR Calc LAB L501.1115 >60 mL/min Normal EST GFR - AA 86 Result Comment: GFR Calc LAB L501.1300 10-20 RATIO Normal BUN/CRE 16.5 LAB L501.2200 8.5-10.1 mg/dL CA Normal 8.7 LAB L501.5300 136-145 mmol/L NA Normal 137 LAB L501.5600 3.5-5.1 mmol/L K Normal 4.0 LAB L501.5900 98-107 mmol/L CL Normal 104 LAB L501.6100 21.0-32.0 mmol/L Normal CO2 27.0 LAB L501.6200 5-15 Normal GAP 6 Performed By: #### L500.2500, L501.9520, L503.6150, L503.6550, L506.0400 #### [facility] [address] [place], [place], [id number] THYROID STIM HORMONE Collected: 08/07/2017 Status: F Source: MANJU (TSH) 8:43 AM [facility] REPOSITORY TYPE CODE TESTS RESULT OUT OF RANGE REFERENCE UNITS LAB L501.9520 0.358-3.74 uIU/mL Normal TSH 1.86 Performed By: #### L500.2500, L501.9520, L503.6150, L503.6550, L506.0400 #### [facility] [address] [place], [place], [address] IRON Collected: 08/07/2017 Status: F Source: MOHAWK 8:43 AM [facility] REPOSITORY TYPE CODE TESTS RESULT OUT OF RANGE REFERENCE UNITS LAB L503.6150 65-175 ug/dL Low IRON 57 Performed By: #### L500.2500, L501.9520, L503.6150, L503.6550, L506.0400 #### [facility] [address] [place], [address] FERRITIN Collected: 08/07/2017 Status: F Source: MOHAWK 8:43 AM [facility] REPOSITORY TYPE CODE TESTS RESULT OUT OF RANGE REFERENCE UNITS LAB L503.6550 26-388 ng/mL Normal FERRITIN 54 Performed By: #### L500.2500, L501.9520, L503.6150, L503.6550, L506.0400 #### [facility] [address] [place], [address] T4 FREE DIRECT Collected: 08/07/2017 Status: F Source: MOHAWK 8:43 AM [facility] REPOSITORY TYPE CODE TESTS RESULT OUT OF RANGE REFERENCE UNITS LAB L506.0400 0.76-1.46 ng/dL Normal T4 FREE 1.28 DIRECT Performed By: #### L500.2500, L501.9520, L503.6150, L503.6550, L506.0400 #### [facility] [address] [place], [address] TONGUE BIOPSY Observed: 05/07/2017 Status: F Source: MOHAWK 12:00 AM [facility] REPOSITORY Patient: BRUCE BANUELOS : 1945 (71/M) Acct Num: [id number] Phys: Carlos Nichols DDS Unit Num: [id number] Loc: LABSPEC Specimen: [id number] Received: 05/07/17 - 1010 Spec Type: TONGUE BX TISSUES TISSUES: Tongue, NOS COMMENT Please make reference to previous specimen ([id number]) right lateral tongue, biopsy with diagnosis of extensive hyperkeratosis, focal parakeratosis and acanthosis. GROSS DESCRIPTION Received in fixative is one container labeled with the patient's name and designated tongue. The specimen consists of a piece of schrader mucosal tissue measuring 0.6 x 0.6 x 0.2 cm. The specimen is inked and submitted entirely in one cassette. It will be bisected at the time of embedding. / SJ:blanco 05/07/17 TC:3 CPT: 15435, 54163 HEADER OPERATION: Biopsy, left tongue PRE-OP DIAGNOSIS: Rule out significant pathology TISSUE SUBMITTED: Left tongue MICROSCOPIC DESCRIPTION Slides are reviewed. MICROSCOPIC DIAGNOSIS Left tongue, biopsy: Squamous mucosa with subepithelial chronic inflammation, focal parakeratosis and hyperkeratosis. Negative for malignancy in the submitted specimen. Special stain for fungi is negative for organisms; matched control is appropriate. SJ:blanco 05/08/17 Signed Garland Rebolledo 05/08/17 <signature on file> Performed By: #### PTOBX #### [facility] [address] [place], [address] ALLERGIES ALLERGIES DATE TYPE / CODE NAME / CODE REACTION SEVERITY SOURCE 03/22/2018 Drug No Known Unknown [facility] Allergy/4160 Allergies/F00 [facility] 16411(SNOMED 4388037(RXNOR Repository CT) M) ENCOUNTERS ENCOUNTERS ADMIT/DISCHARGE ACCOUNT ADMITTING ENCOUNTER LOCATION SOURCE NUMBER CLASS 03/22/2018/ [id number] Emergency [place] 8 5 [facility] ing:ED Repository 11/06/2017 [id number] Ambulatory BMSBuilding:B [place] 5 [facility] Repository 11/01/2017 [id number] Ambulatory BMSBuilding:B [place] 8 [facility] Repository 10/24/2017/ [id number] Ambulatory BMSBuilding:B [place] 8 5 [facility] Repository 08/07/2017 [id number] Ambulatory [place] 6 [facility] ing:BFHLAB Repository 05/07/2017 [id number] Ambulatory [place] 3 [facility] ing:LABSPEC Repository PAYERS PAYERS ENCOUNTER GUARANTOR PAYER SUBSCRIBER SOURCE 03/22/2018 BRUCE [id number] Insurance:MEDICARE WATSONDOB: [facility] PART A BPolicy Number: [id number] [facility] [id number] [facility] [place] Date:2018-03-22 [id number]: () 03/22/2018 Secondary BRUCE J [place] Insurance:HUMANA WATSONDOB: [facility] [id number] Hospital Number: Repository [id number] Date:5105-51-22YV [address] [place] [phone]: 03/22/2018 Tertiary NOT GIVENUNK [place] Insurance:SELF PAY [facility] Hospital Number: Effective Repository Date:2018-03-22 11/06/2017 Bruce J Primary Bruce J [place] [id number] Insurance:HUMANA WatsonDOB: [id number] Number: [place] [id number]: Date:7652-01-33CO [phone] [place] [address] 0-4 () [phone]: 11/06/2017 Secondary Bruce J [place] Insurance:MEDICARE WatsonDOB: Community PART A BPolicy Number: [id number] Hospital [id number] Repository Date:2017-04-10 11/06/2017 Tertiary NOT GIVENUNK [place] Insurance:SELF PAY [facility] Number: Effective Repository Date:2017-04-10 11/01/2017 Bruce J Primary Bruce J [place] [id number] Insurance:MEDICARE WatsonDOB: [facility] Woodruff PART A BPolicy Number: [id number] Española Hospital [id number] [facility] [place] Date:2017-08-19 [address]Lft: () 11/01/2017 Secondary Bruce J [place] Insurance:HUMANA WatsonDOB: [facility] [id number] Hospital Number: Repository [id number] Date:5508-66-74OI [address] [place] [phone]: 11/01/2017 Tertiary NOT GIVENUNK [place] Insurance:SELF PAY [facility] Number: Effective Repository Date:2017-08-19 10/24/2017 BRUCE J Primary BRUCE J [place] [id number] Insurance:MEDICARE WATSONDOB: Community CLEAR NOORVIK PART A BPolicy Number: [id number] Health Care Facility [id number] Repository [place] Date:2017-10-10 [address]Pua: (HP) 10/24/2017 Secondary BRUCE J [place] Insurance:HUMANA WATSONDOB: [facility] [id number] Hospital Number: Repository [id number] Date:[id number] [address]JC: 10/24/2017 Tertiary NOT GIVENUNK [place] Insurance:SELF PAY [facility] Number: Effective Repository Date:2017-10-24 08/07/2017 Bruce J Primary Bruce J [place] [id number] Insurance:MEDICARE WatsonDOB: Community [place] PART A BPolicy Number: [id number] Española Hospital [id number] Repository [place] Date:2017-08-07 [address]Ybd: [phone] 0-4 (HP) 08/07/2017 Secondary Bruce J [place] Insurance:HUMANA WatsonDOB: [facility] [id number] Hospital Number: Repository [id number] Date:[id number] [address]FU: 08/07/2017 Tertiary NOT GIVENUNK [place] Insurance:SELF PAY [facility] Number: Effective Repository Date:2017-08-07 05/07/2017 Bruce J Primary Bruce J [place] [id number] Insurance:MEDICARE WatsonDOB: Community [place] PART A BPolicy Number: [id number] Española Hospital [id number] Repository [place] Date:2017-05-07 [address]Ffc: [phone] 0-4 (HP) 05/07/2017 Secondary Bruce J [place] Insurance:HUMANA WatsonDOB: Community COMMERCIALPolicy [id number] Hospital Number: Repository [id number] Date:[id number] [address]AT: 05/07/2017 Tertiary NOT GIVENUNK [place] Insurance:SELF PAY [facility] Number: Effective Repository Date:2017-05-07
== END 2018-03-22 06:52 | disposition home or self-care (01) ==
PROVIDERS: Emergency Provider Emergency Medicine; Family Provider Family Medicine; PCP Family Medicine
DX: S01.511A Laceration without foreign body of lip, initial encounter (principal); S01.512A Laceration without foreign body of oral cavity, initial encounter; R55 Syncope and collapse; E86.0 Dehydration; W19.XXXA Unspecified fall, initial encounter; Y93.9 Activity, unspecified; Y92.9 Unspecified place or not applicable; I71.2 Thoracic aortic aneurysm, without rupture; Q23.1 Congenital insufficiency of aortic valve; I49.1 Atrial premature depolarization; I10 Essential (primary) hypertension; I34.1 Nonrheumatic mitral (valve) prolapse; I35.1 Nonrheumatic aortic (valve) insufficiency; I35.0 Nonrheumatic aortic (valve) stenosis; I34.0 Nonrheumatic mitral (valve) insufficiency; Z79.82 Long term (current) use of aspirin; Z79.899 Other long term (current) drug therapy; Z87.891 Personal history of nicotine dependence
CPT/HCPCS: 12013; 71046; 80048; 81001; 82962; 84484; 85025; 93005; 96360; 96361; 96365; 96366; 99285; J7030

== ENCOUNTER → 2018-05-16 07:55 | Outpatient (CLI) | payer MEDICARE, OTHER, SELFPAY ==
[2018-05-01 13:47] VITALS: BMI 24.6
--- NOTE | 2018-05-16 07:57 | ECHOD_ITS ---
Reason For Study: Bicuspid AV Procedure This was a 2D Doppler, Color Flow transthoracic echocardiogram. The exam was of adequate technical quality. Exam performed in department. Left Ventricle Normal LV size. Apical false tendon noted. Left ventricular systolic function is normal. The estimated ejection fraction is 70 %. No evidence for diastolic dysfunction. No regional wall motion abnormalities noted. Right Ventricle Normal RV size. Normal systolic function. Atria The left atrium is mildly enlarged. The right atrium is mildly enlarged. No doppler evidence for ASD. Mitral Valve There is no mitral annular calcification. Mild diffuse mitral valve thickening. Mild mitral valve prolapse, posterior leaflet. Mild (1+) eccentric mitral valve insufficiency. Tricuspid Valve Normal tricuspid valve. Mild to moderate (1-2+) tricuspid valve insufficiency. Right ventricular systolic pressure estimated to be 35 mmHg. Aortic Valve Bicuspid aortic valve. Moderate diffuse aortic valve calcification. Moderate to severe aortic valve stenosis. Pulmonic Valve The pulmonic valve is not well visualized. Great Vessels Mild to moderately dilated aortic root. Pericardium/Pleural No pericardial effusion. MMode/2D Measurements & Calculations LVIDd: 4.5 cm IVSd: 1.2 cm LVOT diam: 2.0 cm LVIDs: 2.3 cm LVPWd: 0.87 cm LVOT area: 3.0 cm2 RVDd: 3.7 cm FS: 49.6 % Ao root diam: 4.3 cm LAV(MOD-bp): 54.5 ml LA A4 area: 19.6 cm2 LA dimension: 3.7 cm LAV(MOD-bp) Indexed: 29.0 ml/m2 LAV(MOD-sp2): 53.1 ml LAV(MOD-sp4): 57.1 ml RA A4 area: 17.7 cm2 Time Measurements MV dec time: 0.24 sec Doppler Measurements & Calculations MV E max payam: 78.9 cm/sec Lat Peak E' Payam: 10.5 cm/sec Med Peak E' Payam: 11.2 cm/sec MV A max payam: 83.4 cm/sec E/E' lat: 7.5 E/E' med: 7.0 MV E/A: 0.95 MV V2 max: 101.1 cm/sec MV P1/2t max payam: 99.2 cm/sec Ao V2 max: 421.0 cm/sec MV max P.1 mmHg MV P1/2t: 80.1 msec Ao max P.9 mmHg MV V2 mean: 54.0 cm/sec MV dec slope: 362.7 cm/sec2 Ao V2 mean: 281.0 cm/sec MV mean P.4 mmHg Ao mean P.6 mmHg MV V2 VTI: 38.2 cm MVA(P1/2t): 2.7 cm2 Ao V2 VTI: 96.7 cm MVA(VTI): 1.7 cm2 TRICIA(I,D): 0.69 cm2 TRICIA(V,D): 0.75 cm2 LV V1 max: 105.4 cm/sec SV(LVOT): 66.7 ml PA V2 max: 103.0 cm/sec LV V1 max P.4 mmHg LV V1 mean P.1 mmHg LV V1 mean: 65.3 cm/sec LV V1 VTI: 22.2 cm TR max payam: 282.8 cm/sec TR max P.0 mmHg Interpretation Summary Left ventricular systolic function is normal. The estimated ejection fraction is 70 %. Apical false tendon noted. The left atrium is mildly enlarged. The right atrium is mildly enlarged. Mild mitral valve prolapse, posterior leaflet Mild diffuse mitral valve thickening. Mild (1+) eccentric mitral valve insufficiency. Mild to moderate (1-2+) tricuspid valve insufficiency. Bicuspid aortic valve. Moderate to severe aortic valve stenosis Mild to moderately dilated aortic root. Right ventricular systolic pressure estimated to be 35 mmHg. No evidence for diastolic dysfunction. Ordering Physician: Glynn Penny Referring Physician: Praveen Brown Performed By: Truong Kelly RCS
== END ==
PROVIDERS: Family Provider Family Medicine; PCP Family Medicine; Referring Provider Nurse Practitioner Family; Visit Provider Nurse Practitioner Family
DX: I71.2 Thoracic aortic aneurysm, without rupture (principal); I34.0 Nonrheumatic mitral (valve) insufficiency; I35.0 Nonrheumatic aortic (valve) stenosis; R55 Syncope and collapse
CPT/HCPCS: 93306

== ENCOUNTER → 2018-06-12 12:01 | Outpatient (CLI) | payer MEDICARE, OTHER, SELFPAY ==
[2018-06-12 10:51] VITALS: BMI 24.7
[2018-06-12 13:15] LABS: International Normalized Ratio 1.1; Prothrombin Time (Protime)PT. 14.2 SECONDS (11.7-14.9)
[2018-06-12 13:17] LABS: Absolute Lymphocyte Count 1.97 X10^3/ul (0.83-4.51); Absolute Neutrophil Count 5.8 X10^3/uL (2.0-7.7); Basophil# 0.17 X10^3/uL; Basophil% 1.9 % (0-1); Eosinophil# 0.39 X10^3/uL; Eosinophils% 4.4 % (0-5); Hematocrit 38.3 % (40-54); Hemoglobin 12.5 g/dl (13.0-16.5); Lymphocyte # 1.97 X10^3/ul (4.0); Lymphocyte % 22.1 % (19-41); Mean Corp Hgb Conc 32.6 g/gl (32-36); Mean Corpuscular Hgb 30.2 pg (27.0-32.0); Mean Corpuscular Volume 92.5 fL (80-94); Monocyte# 0.62 X10^3/uL; Neutrophil # 5.75 X10^3/uL (2.7-7.7); Neutrophil % 64.5 % (47-70); Platelet Count 211 K/mm3 (150-450); RBC Distribution Width CV 12.8 % (11.6-14.6); Red Blood Count 4.14 M/mm3 (4.6-6.2); White Blood Count 8.9 K/mm3 (4.4-11.0)
[2018-06-12 13:19] LABS: POSITIVE COUNT NO; POSITIVE DIFFERENTIAL NO; POSITIVE MORPHOLOGY NO
[2018-06-12 13:31] LABS: Anion Gap 7 (5-15); BUN 16 mg/dL (7-18); BUN/Creat Ratio 15.4 RATIO (10-20); Calcium,Total 8.6 mg/dL (8.5-10.1); Chloride 105 mmol/L (98-107); Creatinine, Serum 1.04 mg/dL (0.70-1.30); EST Glomerular Filtration Rate 75 mL/min (>60); Est Glom Filt Rate - Afr Amer 90 mL/min (>60); Glucose 90 mg/dL (74-106); Potassium 4.2 mmol/L (3.5-5.1); Sodium Level 138 mmol/L (136-145)
== END ==
PROVIDERS: Family Provider Family Medicine; PCP Family Medicine; Referring Provider Nurse Practitioner Family; Visit Provider Nurse Practitioner Family
DX: Z01.810 Encounter for preprocedural cardiovascular examination (principal); E78.00 Pure hypercholesterolemia, unspecified; I49.1 Atrial premature depolarization
CPT/HCPCS: 36415; 80048; 85025; 85610

== ENCOUNTER 2018-06-17 09:02 | Day surgery (SDC) | payer MEDICARE, OTHER, SELFPAY ==
[2018-05-01 13:47] VITALS: BMI 24.6
[2018-06-12 10:51] VITALS: BMI 24.7
[2018-06-16 09:36] VITALS: BMI 24.7
[2018-06-17 11:41] LABS: Base Excess -3 mmol/L (-2 to +2); Bicarbonate 21.4 mmol/L (22-26); Blood Gas Specimen Type ART; PO2 79 mmHG (75-100); SO2 96 % (95-99); Total Carbon Dioxide 22 mmol/L; pCO2 34.8 mmHg (35-45)
[2018-06-17 11:41] LABS: Blood Gas Specimen Type VEN; VBG BASE EXCESS -2 mmol/L (-1.0-3.5); VBG Bicarbonate 24 mmol/L (22-26); VBG Oxygen Content 25 mmol/L (23-33); VBG PO2 36 mmHg (25-40); VBG SO2 68 % (50-70); VBG pCO2 40.5 mmHg (41-51); VBG pH 7.38 (7.32-7.42)
[2018-06-17 11:41] LABS: Blood Gas Specimen Type VEN; VBG BASE EXCESS -1 mmol/L (-1.0-3.5); VBG Bicarbonate 25 mmol/L (22-26); VBG Oxygen Content 26 mmol/L (23-33); VBG PO2 37 mmHg (25-40); VBG SO2 68 % (50-70); VBG pCO2 43.1 mmHg (41-51); VBG pH 7.37 (7.32-7.42)
[2018-06-17 11:41] LABS: Blood Gas Specimen Type VEN; VBG BASE EXCESS -2 mmol/L (-1.0-3.5); VBG Bicarbonate 23 mmol/L (22-26); VBG Oxygen Content 25 mmol/L (23-33); VBG PO2 36 mmHg (25-40); VBG SO2 68 % (50-70); VBG pCO2 40.1 mmHg (41-51); VBG pH 7.37 (7.32-7.42)
--- NOTE | 2018-06-17 12:12 | CL.D_ITS ---
Patient Name: BRUCE BANUELOS Study Date: 06/17/2018 Performing: Norris Craven MD Ht: 68.89 inches 175 cm : 1945 Wt: 167.55 lbs 76 kg Age: 72 Gender: male BSA: 1.91 PROCEDURE(S) PERFORMED DK21-CAJ/LHC/COR/LV CLINICAL PROFILE AND INDICATIONS Indications: Valvular Disease Heart Failure: None Stress/Imaging Stress/Image Study Performed: No Angina Classification Anginal Classification w/in 2 Weeks: No symptoms CAD Presentations: No Sxs, no angina. CONCLUSIONS Normal Left Ventricular End Diastolic Pressure Right heart pressures - mildly elevated The patient has pulmonary hypertension which is mild. Intracardiac shunting: None Normal LV size, wall motion,and systolic function LVEF: by LV gram 65 % Te-Moak Multivessel CAD (mild) AV: Bicuspid / Restricted / Stenotic (By Cardiac Cath: mild; By TTE: Severe with a PP gradient of 71 mmHg, a MG of 37 mmHg, and an TRICIA of 0.7-0.8 cm^2) Aortic Root Aneurysm RECOMMENDATIONS DESCRIPTION OF PROCEDURE The patient arrived to the procedure lab. The risks and benefits of the procedure as well as a full d escription of our services here and current unavailability of surgical backup were fully explained to the patient and/or their significant other prior to the catheterization. The Timeout was completed, verifying the correct patient and procedure. The patient's procedural site was prepped and draped in the usual fashion. Local anesthetic was given subcutaneously to right groin region with Lidocaine 2%. Using a modified Seldinger technique, arterial access was obtained via the right femoral artery, a 4 Fr sheath was inserted Venous access was obtained via the right femoral vein, a 7Fr sheath was insert ed. A 7Fr thermal dilution catheter was inserted and right heart pressures were recorded, it was then advanced to PA position for cardiac outputs. Thermal dilution cardiac outputs were then recorded. O2 saturations were then obtained. Left Ventriculography was performed in CANELA projection using a 4 Fr. Pigtail catheter. Simultaneous pressures were then recorded. LV to AO pullback pressure s were then recorded. The Thermal dilution catheter was then removed. Left Coronary Artery selective angiography was performed in multiple views using a 4 Fr. JL4 catheter. Right Coronary Artery selecti ve angiography was then performed in multiple views using a 4 Fr. 3DRC catheter.The arterial sheath w as pulled and manual compression applied until hemostasis is achieved.. The venous sheath was then pu lled and manual compression applied until hemostasis achieved CORONARY ANGIOGRAPHY DOMINANCE: Right Dominant LEFT HEART ASSESSMENT Left Ventricular Ejection Fraction: by LV Gram 65 % Normal LV wall motion Normal Left Ventricular End Diastolic Pressure LVEDP: 12 mmHg RIGHT HEART ASSESSMENT Thermal CO: 4.44 Thermal CI: 2.32 Jacquelin CO: 5.34 Jacquelin CI: 2.8 PW: 11/6 10 PA: 31/8 16 RV: 34/-3 9 RA: 8/3 4 PVR: 108 SVR: 1568 Aortic Valve Area: 2.18 Aortic Valve Index: 1.14 Aortic Valve Mean Gradient: 26.6 Right Heart pressures - elevated (mild elevation of the RVSP / PASP) Pulmonary Hypertension (mild elevation of the RVSP / PASP) Intracardiac shunting: None LEFT MAIN: Angiographically normal LEFT ANTERIOR DECENDING ARTERY: PROX LAD: Eccentric: Hazy: 10-25 % Stenosis CIRCUMFLEX ARTERY: PROX CIRC: Eccentric: 25 % Stenosis RIGHT CORONARY ARTERY: Mild luminal irregularities VALVE FINDINGS: Normal Mitral Valve function Bicuspid Aortic Valve AORTIC ROOT: Aneurysm COMPLICATIONS No Complications PROCEDURE MEDICATIONS Versed 1 mg IV Baby Aspirin (81mg) 1 Tabs PO @ 06/17/2018 09:29:36 SUMMARY OF HEMODYNAMIC DATA Time AIR REST ECG 09:29:44 RA 83 (4) SV 10:57:55 RV 34/-3, 9 10:58:09 PA 31/8 (16) PA 10:58:40 PW 11 (10) PV 10:59:53 AO 124/72 (91) SA 11:06:16 LV 164/-14, 12 11:08:39 PW (12) 11:08:39 LV 150/-7, 13 11:10:21 PW 04/10 (10) 11:10:21 LV 148/-6, 12 11:10:38 LV 151/-7, 12 11:10:46 LVp 140/-5, 11 11:11:01 AOp 117/59 (80) 11:11:07 PA 30/10 (18) 11:11:38 RV 35/0, 10 11:12:07 RA 01/28 (6) 11:12:16 Valve Area (c P-P/ms Time AIR REST Aortic 2.18 26.6 mn/162 ms23.0 pk/162 ms 11:11:01 Type SV CO (l/m) CI (l/m/ HR Time AIR REST Thermal 79.30 4.44 2.32 56 09:29:44 Jacquelin 95.40 5.34 2.80 56 09:29:44 Label % O2 Pres/Loc Time AIR REST AO 96 PV 11:29:46 IVC 68 SV 11:29:55 SVC 68 11:30:00 PA 68 PA 11:30:05 Signed By Norris Craven MD On 06/17/2018 12:10:53 Norris Craven MD
== END 2018-06-17 15:45 | disposition home or self-care (01) ==
LOC: CLSP 09:02
PROVIDERS: Family Provider Family Medicine; PCP Family Medicine; Referring Provider Internal Medicine Cardiovascular Disease; Visit Provider Internal Medicine Cardiovascular Disease
DX: I71.2 Thoracic aortic aneurysm, without rupture (principal); Q23.1 Congenital insufficiency of aortic valve; I10 Essential (primary) hypertension; E78.00 Pure hypercholesterolemia, unspecified; I34.0 Nonrheumatic mitral (valve) insufficiency; Z87.891 Personal history of nicotine dependence
CPT/HCPCS: 82803; 93460; 99152; 99153; J7040; Q9967; C1751; C1769; C1894

== ENCOUNTER → 2018-08-11 14:16 | Outpatient (CLI) | payer MEDICARE, OTHER, SELFPAY ==
[2018-08-07 14:48] VITALS: BMI 24.2
[2018-08-11 15:47] LABS: Absolute Lymphocyte Count 1.49 X10^3/ul (0.83-4.51); Absolute Neutrophil Count 4.3 X10^3/uL (2.0-7.7); Basophil% 2.8 % (0-1); Eosinophil# 0.46 X10^3/uL; Eosinophils% 6.5 % (0-5); Hematocrit 36.5 % (40-54); Hemoglobin 11.6 g/dl (13.0-16.5); Lymphocyte # 1.49 X10^3/ul (4.0); Mean Corp Hgb Conc 31.8 g/gl (32-36); Mean Corpuscular Hgb 28.6 pg (27.0-32.0); Mean Corpuscular Volume 89.9 fL (80-94); Monocyte# 0.64 X10^3/uL; Neutrophil # 4.31 X10^3/uL (2.7-7.7); Neutrophil % 60.7 % (47-70); Platelet Count 302 K/mm3 (150-450); RBC Distribution Width CV 12.6 % (11.6-14.6); RBC Distribution Width SD 40.9 fl (35.1-43.9); Red Blood Count 4.06 M/mm3 (4.6-6.2); White Blood Count 7.1 K/mm3 (4.4-11.0)
[2018-08-11 15:50] LABS: POSITIVE COUNT NO; POSITIVE DIFFERENTIAL NO; POSITIVE MORPHOLOGY NO
[2018-08-11 16:02] LABS: Vitamin D,25 Hydroxy 23.4 ng/mL (29.95-100.01)
[2018-08-11 16:04] LABS: ALB/GLOB Ratio 0.9 RATIO (0.9-2.4); AST(SGOT) 18 U/L (15-37); Alanine Aminotransfer ALT/SGPT 20 U/L (16-61); Albumin, Serum 3.6 g/dL (3.2-5.0); Alkaline Phosphatase 97 U/L (45-117); Anion Gap 3 (5-15); BUN 15 mg/dL (7-18); BUN/Creat Ratio 14.7 RATIO (10-20); Calcium,Total 8.5 mg/dL (8.5-10.1); Chloride 102 mmol/L (98-107); Creatinine, Serum 1.02 mg/dL (0.70-1.30); EST Glomerular Filtration Rate 76 mL/min (>60); Est Glom Filt Rate - Afr Amer 92 mL/min (>60); Glucose 87 mg/dL (74-106); Potassium 4.2 mmol/L (3.5-5.1); Protein, Total 7.6 g/dL (6.4-8.2); Sodium Level 134 mmol/L (136-145); Thyroid Stim Hormone (TSH) 0.88 uIU/mL (0.358-3.74)
== END ==
PROVIDERS: Family Provider Family Medicine; PCP Family Medicine; Visit Provider Family Medicine
DX: E03.9 Hypothyroidism, unspecified (principal); D64.9 Anemia, unspecified; E55.9 Vitamin D deficiency, unspecified
CPT/HCPCS: 36415; 80053; 82306; 84443; 85025

== ENCOUNTER → 2018-08-12 11:44 | Outpatient (CLI) | payer MEDICARE, OTHER, SELFPAY ==
[2018-08-07 14:48] VITALS: BMI 24.2
--- NOTE | 2018-08-12 12:45 | STRESSREP ---
Stress Test Report Date: 08-12-18 Procedure: Exercise tolerance test Indications: Chest pain; status post aortic valve replacement; status post aortic root repair Consent: Per the patient Procedure: The patient exercised on a Bebo protocol for 9 minutes completing Stage III achieving a peak heart rate of 190 bpm (127 % predicted maximal heart rate) with a peak blood pressure 162/80 mmHg and a peak MET capacity of approximately 10 and MET's. The baseline ECG demonstrated normal sinus rhythm. The peak exercise ECG demonstrated beat to beat nonspecific ST segment variability with resolution towards baseline beginning less than 1 minute in recovery. There was a transient episode of PSVT during exercise with spontaneous resolution in exercise and an isolated ventricular couplet during exercise. The functional capacity was considered good. The patient had no complaint of chest discomfort during exercise or recovery. The examination was discontinued secondary to leg discomfort. Impression: 1. Technically adequate (percent predicted maximal heart rate greater than 85%) exercise tolerance test 2. Peak exercise ECG with beat to beat nonspecific ST segment variability with resolution towards baseline beginning less than 1 minute in recovery 3. There was a transient episode of PSVT during exercise with spontaneous resolution in exercise and an isolated ventricular couplet during exercise This note was generated with [employer] software. It may contain incorrect words, spelling, and punctuation that were not noted in checking the note before signing.
== END ==
PROVIDERS: Family Provider Family Medicine; PCP Family Medicine; Referring Provider Internal Medicine Cardiovascular Disease; Visit Provider Internal Medicine Cardiovascular Disease
DX: R07.9 Chest pain, unspecified (principal); Z98.890 Other specified postprocedural states; Z95.2 Presence of prosthetic heart valve
CPT/HCPCS: 93017

== ENCOUNTER → 2018-08-26 | Outpatient (CLI) | payer MEDICARE, OTHER, SELFPAY ==
[2018-08-07 14:48] VITALS: BMI 24.2
--- NOTE | 2018-08-26 12:26 | PCM.CR.ITP ---
General Information - General Information Admitting Diagnosis: S/P AORTIC VALVE REPLACEMENT W/ AORTO REPAIR - Education/Goals Barriers to Learning: None Individual Counseling: Initial Assessment: Abnormal Cholesterol Levels, High Blood Pressure Cardiac Rehabilitation Goals: 1. Maintain the individual as the primary focus of care. 2. To improve the patient's quality of life. 3. Identification of cardiac risk factors and provide cardiac risk factor management. 4. Enhance the psychosocial status of the patient. 5. Reconditioning enough to allow the patient to resume customary activities. 6. Control symptoms of cardiac disease Scale for measuring improvement of personal goals: Enter appropriate number in Comments. 2 = Unchanged. 3 = Slightly Better. 4 = Moderate Improvement. 5 = Met my Goal Personal Goals: Initial Assessment: Get back to work, or to resume activities faster, Improve muscle strength and endurance, Improve diet and eating habits (eat healthier), Control risk factors (learn risk factor modification) Exercise - Initial Assessment - Visit Date of Eval: 08/26/18 Session #:: 0 - START - Stages of Change Stages of Change:: Action - Physician Prescribed Exercise Modalities: Treadmill, Rower - 6 WEEKS POST OP OF 07/15/2018, Jude Salmon Frequency (days/week): 3x/week for 12 weeks [36 sessions] Patient Health Questionnaire Initial Assessment 1. Little interest or pleasure in doing things: Not at all 2. Feeling down, depressed, or hopeless: Not at all 3. Trouble falling or staying asleep, or sleeping too much: Several days 4. Feeling tired or having little energy: Several days 5. Poor appetite or overeating: Several days 6. Feeling bad about yourself -- or that you are a failure or have let yourself or your family down: Not at all 7. Trouble concentrating on things, such as reading the newspaper or watching television: Not at all 8. Moving or speaking so slowly that other people could have noticed. Or the opposite - being so fidgety or restless that you have been moving around a lot more than usual: Not at all 9. Thoughts that you would be better off , or of hurting yourself in some way: Not at all How difficult have these problems made it for you to do your work, take care of things at home, or get along with other people?: Not difficult at all Total Score: 3 SEBASTIAN-Q SV Test - Statements CAD is a disease of the arteries in the heart: False Examples of risk factors for heart disease: True Angina is chest pain or discomfort: True The benefits of resistance training include: True Eating more meat and dairy products: False Anti-platelet medications such as aspirin are important: True The only effective way to manage stress: I Don't Know An exercise warm-up slowly increases heart rate: True Prepared, processed foods usually have high sodium: True Depression is common after a heart attack: True The statin medications lower cholesterol: I Don't Know To control blood pressure, lower the amount of sodium: True If someone gets chest discomfort during walking: False Transfats are partially hydrogenated vegetable oils: True Sleep apnea that is not treated increases the risk: False To control cholesterol, one should become a vegetarian: False Someone knows if he/she is exercising at the right level: True Diabetes cannot be prevented with exercise & health eating: False Stress is a large risk for heart attack: True A diet that can help lower blood pressure is rich in: True - Total Score Total Correct Responses: 18 Self-Efficacy Initial Assessment We would like to know how confident you are in doing certain activities. Please select your confidence level for:: Select your confidence level for the following using the scale 1-10 where 1 is not at all confident and 10 is totally confident. Your score is the average of all 6 responses. Fatigue: How confident are you that you can keep the fatigue caused by your disease from interfering with the things you want to do? Select Number: 8 Physical Discomfort or Pain: How confident are you that you can keep the physical discomfort or pain of your disease from interfering with the things you want to do? Select Number: 6 Emotional Distress: How confident are you that you can keep the emotional distress caused by your disease from interfering with the things you want to do? Select Number: 8 Other Symptoms or Health Problems: How confident are you that you can keep other symptoms or health problems from interfering with the things you want to do? Select Number: 8 Different Tasks and Activities: How confident are you that you can do the different tasks and activities needed to manage your health condition so as to reduce your need to see a doctor? Select Number: 7 Medication: How confident are you that you can do things other than just taking medication to reduce how much your illness affects your everyday life? Select Number: 7 Total Score:: 7 Nutrition Survey - Nutrition Survey Instructions Scoring Instructions: Scoring is as follows: Yes = 1 points. No = 0 point. Patient score that is >/=12 is considered to be at potential nutritional risk and could benefit from a referral to a registered dietitian. - Nutrition Survey Initial Have you lost >10 lbs over the past 2 months without trying?: No Are you following a special diet at home for diabetes, low fat, or low salt?: No Are you interested in meeting with a dietitian for help understanding your diet?: No Do you eat less than 3 meals a day?: No Do you eat fatty meats (sun, sausage, ribs, etc), fried foods, desserts, large amounts of salad dressings, margarine, butter, or cheese most days?: No Do you have food allergies? [Enter types in comment field]: No Do you eat in restaurants more than 3 times a week?: Yes Do you season food with salt, seasoning salt, or garlic salt?: No Do you used canned, boxed, frozen meals, or soups, seasoning packets?: Yes Total Score:: 2
--- NOTE | 2018-08-26 12:31 | CR.HP_ITS ---
CR - History & Physical - General Arrival date:: 08/26/18 Arrival time:: 12:00 Date of Referral:: 08/07/18 Date of CR Evaluation:: 08/26/18 Referring Physician: Dr. Norris Craven Primary Diagnosis: Heart Valve Repair Replacement - Aortic Valve - History of Present Cardiac Event Onset Date: Enter Onset Date of cardiac illnesses in Comment field below Heart valve replacement or repair:: Yes - 07/15/2018 @ [facility] Type of Symptoms:: 7 YR OF AGE HAD HEART MURMER, OVER THE PAST 17-18 YEARS HAS PROGRESSIVELY GOTTEN WORSE. Interventions with present event:: X-RAYs, NUCLEAR STRESS TEST, ECHOCARDIOGRAM, SENT TO [facility]. Were there any complications?: NONE TO MENTION; - Medications Home Medications: Ambulatory Orders Medication Instructions Recorded levothyroxine 100 mcg tablet 100 mcg PO QDAY #90 tab 10/01/17 prazosin 5 mg capsule 5 mg PO QDAY #90 cap 10/01/17 ramipril 5 mg capsule 5 mg PO QDAY #90 cap 10/01/17 amoxicillin 500 mg capsule 2,000 mg PO ONCE cap 05/01/18 ferrous sulfate 325 mg (65 mg 325 mg PO DAILY tab 05/01/18 iron) tablet cholecalciferol (vitamin D3) 1,000 1,000 unit PO DAILY 06/12/18 unit capsule acetaminophen 325 mg capsule 650 mg PO Q6H PRN cap 07/25/18 magnesium oxide 400 mg capsule 400 mg PO BID cap 07/25/18 metoprolol tartrate 25 mg tablet 12.5 mg PO BID tab 07/25/18 pantoprazole 20 mg tablet,delayed 20 mg PO DAILY 07/25/18 release aspirin 81 mg chewable tablet 162 mg PO QDAY tab 08/07/18 calcium citrate 250 mg tablet 250 mg PO DAILY tab 08/07/18 diphenhydramine 25 mg capsule 25 mg PO QHS PRN 08/07/18 melatonin 10 mg tablet 10 mg PO HS PRN 08/07/18 sennosides 8.6 mg tablet 8.6 mg PO DAILY tab 08/07/18 - Allergies Allergies/Adverse Reactions: Allergies No Known Allergies Allergy (Verified 08/07/18 14:52) - Sleep Disorder Evaluation Hx of Sleep Apnea: No Do you snore loudly (louder than talking or can be heard through closed doors)?: Yes Do you often feel tired/ fatigued/ sleepy during daytime?: No Has anyone observed you stop breathing during sleep?: No History of Hypertension (for STOP score): Yes STOP Results: Positive Advanced Directives - Advanced Directives 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 Living Will: Yes Advance Directives Information Provided: No Advance Directives on File: No - PATIENT TO PROVIDE A COPY TO H.I.M. DNR Order?:: No - MOLST See MOLST form: No Past Medical History - Past Medical Illness Medical History: Past Medical History (Last Updated 07/31/18 @ 15:44 by Lucy Martin) Essential hypertension (Chronic) I10 Hyperlipidemia (Chronic) E78.5 Ectopic atrial rhythm (Chronic) I49.1 Mitral valve prolapse (Chronic) I34.1 Nonrheumatic mitral valve insufficiency (Chronic) I34.0 Nonrheumatic aortic valve insufficiency (Chronic) I35.1 Nonrheumatic aortic valve stenosis (Chronic) I35.0 Bicuspid aortic valve (Chronic) Q23.1 Ascending aortic aneurysm (Chronic) I71.2 Hypertension (Inactive) I10 - Past Surgical History Surgical History: Past Surgical History (Last Updated 08/07/18 @ 15:04 by Karina Sanon) H/O aortic valve replacement (Chronic) Onset Date: ~07/15/18 Z95.2 Status post aorta repair (Resolved) Onset Date: ~07/15/18 Z98.890 Aortoplasty of ascending aorta History of tonsillectomy and adenoidectomy Z98.890 Right shoulder Onset Date: ~2014 S/P aortic valve replacement (Inactive) Z95.2 - Family History Summary Family History: Family History (Last Reviewed 08/07/18 @ 15:05 by Karina Sanon) Father CAD (coronary artery disease) Mother Liver carcinoma Brother Cancer brain Social History - Smoking History Smoking Status: Former smoker Hx Smoking Cessation Date: 35 years ago JUN 19 Hx Tobacco Use: Yes Hx Smoking Exposure: No - Alcohol Use Alcohol Usage: Yes - current alcohol a few times per week. - Substance Abuse Hx Substance Use: No - Occupation Occupation (List type of work in comments):: Retired - Hobbies, Recreation, Social Activities Hobbies: Sports - GOLFING, Other - GOLFING Recreational Activities: I am able to engage in most, but not all activities Social Environment - Status Marital Status: - Current Living Arrangements Living Environment:: Spouse - Children How many children do you have?: 4 Do any of your children live nearby?: Yes - [place]DE[place] LIVES IN [place], ONE STEP SON AND ONE BIOLOGIC SON LIVE IN [place] - Safety Do you feel safe in your surroundings?: Yes - Assistance Do you need any assistance at home?: NONE Review of Systems - Review of Systems Hints: Right click = Denies (Slash). Left click = Reports ([place]) Review of Present Symptoms: Reports: Shortness of Breath with Exertion - STILL HAVING SOME AFTER THE SURGERY; BEEN PICKING UP DOWNED BRANCHES ETC IN THE YARD AND REALLY NOTICE IT IS TIRING AND GETS ME WINDED., Wound Healing, Heart Arrhythmia/Irregularities - Ectopic Atrial Rhythm, Appetite - Normal, Sleep - Normal. Denies: Shortness of Breath at Rest, Operative Discomfort, Dizziness/Lightheadedness, Fatigue, Appetite - Special Diet, Sexual Changes - Pain Is Patient Pain Free?: Yes Pain Location: none, other - CHEST MUSCLE ACHES RIGHT SIDE OF HTE CHEST. WAS SWINGING A SPUD BAR AND SLEDGE HAMMER THE OTHER DAY AT HOME CAUGHT HIM AND STOPPED HIM. Pain Level: 2/10 - DISCOMFORT NOT PAIN Risk Factor Assessment - Chief Complaint Chief Complaint: AORTIC VALVE REPLACEMENT AND AORTA REPAIR. - Vital Signs Temperature: 98.7 F Respiratory Rate: 16 Blood Pressure: 92/54 - Pulse Pulse Rate: 60 - Hypertension Blood Pressure Sitting - Right Arm: 92/54 - Blood Cholesterol/Lipids Total Cholesterol (mg/dL) Goal = less than 200 mg/dL: 199 HDL Cholesterol (mg/dL) Goal = less than 40 mg/dL: 61 LDL Cholesterol (mg/dL) Goal = less than 70 mg/dL: 112 Triglycerides (mg/dL) Goal = less than 150 mg/dL: 131 - Diabetes Nutrition Referral for Diabetes: No - Obesity Height: 5 ft 9 in Weight:: 164 lb Weight in Pounds: 164.0 lbs Weight Source: Stated by Patient Body Mass Index (BMI): 24.2 Nutritional Referral for Obesity: No - Risk Stratification Risk Guidelines: Lowest Risk: Risk Factor for Smoking, Risk Factor for Dyslipidemia, Risk Factor for Diabetes, Risk Factor for Obesity, Risk Factor for Hypertension, Risk Factor for Sedentary Lifestyle, Risk Factor for Depression - For Smoking Smoking Risk Guidelines: Smoking Low Risk: None or quit greater than 6 months ago. Smoking Moderate Risk: Smoker or quit 6 months or less ago. Smoking High Risk: Smoker - For Dyslipidemia Dyslipidemia Risk Guidelines: Low Risk: Moderate Risk: High Risk: 15-25% fat 25.1-29% fat >/= 30% fat. <7% sat fat 7-9% sat fat >9% sat fat. <150 mg chol 150-299 mg chol >/= 300 mg chol. LDL <100 LDL 100-129 LDL >/= 130. Chol/HDL ratio <5.0 Chol/HDL ratio 5.0-6.0 Chol/HDL ratio >6.0. Triglycerides <100 Triglycerides 100-149 Triglycerides >/= 150 - For Diabetes Mellitus Diabetes Risk Guidelines: Diabetes Low Risk: HgA1c <6.5% and/or FBG <120. Diabetes Moderate Risk: HgA1c 6.6-7.9% and/or FBG 120-180. Diabetes High Risk: HgA1c >/= 8% and/or FBG >180 - For Obesity/Overweight Obesity/Overweight Risk Guidelines: Obesity Low Risk: BMI <25.0. Obesity Moderate Risk: BMI 25-29.9. Obesity High Risk: BMI >/= 30.0 - For Hypertension Hypertension Risk Guidelines: Hypertension Low Risk: Systolic <120 and Diastolic <80. Hypertension Moderate Risk: Systolic 120-139 and Diastolic 80-89. Hypertension High Risk: Systolic >/= 140 and Diastolic >/= 90 - For Sedentary Lifestyle Sedentary Lifestyle Risk Guidelines: Sedentary Lifestyle Low Risk: >/= 1,500 kcal/week. Sedentary Lifestyle Moderate Risk: 700-1,499 kcal/week. Sedentary Lifestyle High Risk: < 700 kcal/week - For Depression Depression Risk Guidelines: Depression Low Risk: Not clinically depressed. Depression Moderate Risk: Mildly depressed. Depression High Risk: Clinically depressed - Family History Family History: Family History (Last Reviewed 08/07/18 @ 15:05 by Karina Sanon) Father CAD (coronary artery disease) Mother Liver carcinoma Brother Cancer Motivation - Motivation to Participate On a scale of 1 to 10, how prepared are you to commit to attending program?: 9 What do you see as barriers to successfully being able to complete the program?: NONE What do you see as the benefits of succesfully completing the program? In other words, what do you hope to get out of participating in the program?: [employer]; BE ABLE TO GOLF Are there issues you are dealing with that will interfere with completing the program?: NONE Do you have a spouse or signficant other, family or friends who will help support you to complete the program?: YES
[2018-08-26 12:56] VITALS: BP 92/54; PULSE 60; RESP 16; TEMP 37.1; BMI 24.2
== END | disposition home or self-care (01) ==
LOC: CR 11:52
PROVIDERS: Family Provider Family Medicine; PCP Family Medicine; Referring Provider Internal Medicine Cardiovascular Disease; Visit Provider Internal Medicine Cardiovascular Disease
DX: I10 Essential (primary) hypertension (principal); E78.5 Hyperlipidemia, unspecified; I49.1 Atrial premature depolarization; I34.1 Nonrheumatic mitral (valve) prolapse; I34.0 Nonrheumatic mitral (valve) insufficiency; Q23.1 Congenital insufficiency of aortic valve; I71.2 Thoracic aortic aneurysm, without rupture; Z95.2 Presence of prosthetic heart valve; Z79.82 Long term (current) use of aspirin; Z79.899 Other long term (current) drug therapy; Z87.891 Personal history of nicotine dependence

== ENCOUNTER 2018-09-19 09:15 | Outpatient (RCR) | payer MEDICARE, OTHER, SELFPAY ==
[2018-08-26 12:56] VITALS: BMI 24.2
== END 2018-09-19 23:59 ==
LOC: CR 09:15
PROVIDERS: Family Provider Family Medicine; PCP Family Medicine; Referring Provider Internal Medicine Cardiovascular Disease; Visit Provider Internal Medicine Cardiovascular Disease
DX: I49.1 Atrial premature depolarization (principal)
CPT/HCPCS: 93798

== ENCOUNTER 2018-10-15 09:15 | Outpatient (RCR) | payer MEDICARE, OTHER, SELFPAY ==
[2018-09-15 12:09] VITALS: BMI 24.2
--- NOTE | 2018-09-26 07:08 | PCM.CR.ITP ---
Exercise - 30-day Assessment - Visit Date of Eval: 09/26/18 Session #:: 11 - Stages of Change Stages of Change:: Action - Physician Prescribed Exercise Modalities: Treadmill, Rower, Airdyne, NuStep Frequency (days/week): 3 Duration (Minutes):: 30-45 Intensity: 60-80% age predicted maximum heart rate reserve METs - Progression: 0.5-1.0 MET, RPE 11-14 WEEK: 5.5 Target Heart Rate:: 97-127 with Max HR 89 - Hypertension Resting Blood Pressure:: 110/52 Peak Exercise Blood Pressure:: 140/72 Medication Changes:: No - Intervention Home Exercise/Activity Goal:: Moderate Exercise 30 min/day x 5 days/wk - Education Goals:: Warm-up, RPE RON Scale, S/S, Safe Exercise, Self-Monitoring - Exercise Program Goals Exercise Program Goals: Aerobic Activity >30 min Nutrition - 30-Day Assessment - Program Goals Nutrition Program Goals: LDL <70. Total Cholesterol <200. HDL >45. Triglycerides <150. HgbA1C <7%. BMI <25 - Visit Date of Eval: 09/26/18 - Stages of Change Stages of Change:: Action - Lipids Has the patient seen the dietitian?: No - Diabetes Diabetes:: No - Weight Management Weight:: 165 lb 8 oz - stable weight - Intervention Referral to dietitian:: No Referral to Diabetic Clinic:: No Will attend diet classes:: Yes - Education Attended class for:: Healthy eating Tobacco - 30-Day Assessment - Program Goals Tobacco Program Goals: Complete smoking cessation. Attend education classes. Improve Knowledge Test score - Stage of Change Stages of Change:: Action - Learning Barriers Learning Barriers: Participates in education, Change in behavior - Family Support Do you have family support?: Yes - Tobacco Use Tobacco Use: Non-smoker Do you use smokeless tobacco?: No - Intervention Smoking Cessation Referral:: No Individual Education/Counseling:: No Education Schedule Given:: Yes - Education Attended class for:: Coronary artery disease, Risk factors, Sexuality, Medical compliance, Cardiac A&P, Angina signs & symptoms Psychosocial - 30-Day Assess - Target Goals Target Goals: Assess presence or absence of depression. Using a valid screening tool, maximizes coping skills. Positive support system - Psychosocial Test Tool Used:: HANDS Depression Questionnaire - Intervention PS - Interventions: Yes Attend Stress Management Classes, Yes Uses Stress Management Skills, No Referral to Mental Health, No Referral to [facility] Case Management, No Referral to Physician - Education Attended classes for:: Coping techniques, Signs & symptoms of depression, Stress management, Relaxation techniques - Patient/Program Goal Preventative Medication(s):: Aspirin, Clopidogrel, Beta dennis, Statin/lipid - Assistive Devices Assistive Devices:: None Fall Risk Assessed:: Yes Patient Health Questionnaire 30-Day Re-eval Assessment 1. Little interest or pleasure in doing things: Not at all 2. Feeling down, depressed, or hopeless: Not at all 3. Trouble falling or staying asleep, or sleeping too much: Not at all 4. Feeling tired or having little energy: Several days 5. Poor appetite or overeating: Several days 6. Feeling bad about yourself -- or that you are a failure or have let yourself or your family down: Not at all 7. Trouble concentrating on things, such as reading the newspaper or watching television: Not at all 8. Moving or speaking so slowly that other people could have noticed. Or the opposite - being so fidgety or restless that you have been moving around a lot more than usual: Not at all 9. Thoughts that you would be better off , or of hurting yourself in some way: Not at all Total Score: 2 Self-Efficacy 30-Day Re-eval Assessment We would like to know how confident you are in doing certain activities. Please select your confidence level for:: Select your confidence level for the following using the scale 1-10 where 1 is not at all confident and 10 is totally confident. Your score is the average of all 6 responses. Fatigue: How confident are you that you can keep the fatigue caused by your disease from interfering with the things you want to do? Select Number: 8 Physical Discomfort or Pain: How confident are you that you can keep the physical discomfort or pain of your disease from interfering with the things you want to do? Select Number: 8 Emotional Distress: How confident are you that you can keep the emotional distress caused by your disease from interfering with the things you want to do? Select Number: 9 Other Symptoms or Health Problems: How confident are you that you can keep other symptoms or health problems from interfering with the things you want to do? Select Number: 9 Different Tasks and Activities: How confident are you that you can do the different tasks and activities needed to manage your health condition so as to reduce your need to see a doctor? Select Number: 8 Medication: How confident are you that you can do things other than just taking medication to reduce how much your illness affects your everyday life? Select Number: 9 Total Score:: 8
[2018-09-26 07:11] VITALS: BP 110/52; BP 140/72
== END 2018-10-19 23:59 ==
LOC: CR 09:15
PROVIDERS: Family Provider Family Medicine; PCP Family Medicine; Referring Provider Internal Medicine Cardiovascular Disease; Visit Provider Internal Medicine Cardiovascular Disease
DX: I49.1 Atrial premature depolarization (principal)
CPT/HCPCS: 93798

== ENCOUNTER 2018-10-28 16:00 | Outpatient (RCR) | payer MEDICARE, OTHER, SELFPAY ==
[2018-09-15 12:09] VITALS: BMI 24.2
--- NOTE | 2018-10-06 11:06 | HP.PTEVAL_ITS ---
Patient's Visit Information BRUCE BANUELOS is a 72 year old M referred to Physical Therapy by Praveen Brown MD with a diagnosis of R shoulder pain. Date of Evaluation: 10/06/18 Physical Therapist: Rene Blount PT, ATC - Visit Plan Frequency: 2x /Week Duration: 2-4 Weeks Plan: R pec major stretching and stengthening, DTR, postural education, and HEP - Subjective Findings: Pt reports he had open heart surgery in July of 2018. Pt reports he was still in the healing process when he attempted to use a sledge hammer with his R UE. Pt reports he experienced pain in the R pectoral region which has stayed with him now for several weaks. Pt is R hand dominant. No tingling or numbness in R UE. Pt reports his pain is worst now when he coughs or yawns really hard. Occasional sleep difficulty secondary to pain. Pt reports he did not have this pain prior to using his sledge hammer. 0/10 pain at rest, 7/10 at worst. - Pain R chest wall Pain Intensity (Out of 10): 0 Pain Intensity Range: 7 - Objective Neuro: B UE sensation is WNL to light touch. B bicepital reflex 2/3. Palpation: Minor pain with palpation along pec major muscle. No obvious deformity present at this time. Minor muscle guarding along pec major muscle region. ROM: B shoulders are WNL. MMT: R shoulder IR 4/5 and minimally painful. All other B UE's 5/5 throughout - Goals Goal 1:: Decrease R chest wall pain x 50% to aid with sleep Goal Time Frame: 2-4 Weeks Goal 2:: Increase R UE strength to 5/5 throughout to aid with RTS Goal Time Frame: 2-4 Weeks Goal 3:: I with HEP Goal Time Frame: 2-4 Weeks - Rehabilitation Potential Physical Therapy Diagnosis: Pt has R chest wall pain and weakness secondary to a strain of R pec major Rehabilitation Potential: Good - Anticipated Interventions Patient/Client Instruction: Educate patient on: Condition, Plan of Care For the Purpose of:: To improve self management Therapeutic Exercise to Include: Strength training, Endurance training, Postural training, Flexibilty training, Scapular Strength/Stabilization For the Purpose of:: To decrease pain, To improve muscle performance and motor function, To increase tolerance to activity/condition/position Cryotherapy (ice pack, ice massage): Yes For the Purpose of:: To decrease pain Thank you for the opportunity to evaluate your patient. For Medicare and Medicare HMO plans, please review the plan of care and approve it. It will need to be FAXED BACK to us at [phone] for Medicare purposes. For Medicare only, by signing this I certify the plan of care. Please let me know if there are questions or concerns regarding this plan of care. Physician Signature: Date:
--- NOTE | 2018-10-28 16:28 | HP.PTDCSUM ---
HP - PT D/C Summary It has been my pleasure to treat BRUCE BANUELOS under orders from Praveen Brown MD, for the diagnosis of R shoulder pain for a total of 5 visit(s). Discharge Date: Please see the following information for a summary of their discharge status. - Subjective Subjective: Pt reports no pain this date. - Pain R chest wall Pain Intensity (Out of 10): 0 - Overall Improvement % Improvement: 95 - Objective Objective/Function: R chest pain 0/10. R UE MMT: 5/5 throughout. Pt is I with HEP. Rx goals achieved - Goals Goal 1:: Decrease R chest wall pain x 50% to aid with sleep Goal Progress: Goal Met Goal 2:: Increase R UE strength to 5/5 throughout to aid with RTS Goal Progress: Goal Met Goal 3:: I with HEP Goal Progress: Goal Met - Plan Plan: Discharge - D/C Information If there are questions or concerns regarding this patient's physical therapy, please feel free to call me at [phone]. Thank you for the referral of this patient. Sincerely, Rene Blount, PT, ATC
== END 2018-10-28 19:00 | disposition home or self-care (01) ==
LOC: PT 16:00
PROVIDERS: Family Provider Family Medicine; PCP Family Medicine; Referring Provider Family Medicine; Visit Provider Family Medicine
DX: R07.81 Pleurodynia (principal); M25.511 Pain in right shoulder
CPT/HCPCS: 97110; 97140; 97161; 97530

== ENCOUNTER 2018-11-19 09:15 | Outpatient (RCR) | payer MEDICARE, OTHER, SELFPAY ==
[2018-09-15 12:09] VITALS: BMI 24.2
[2018-10-20 00:52] VITALS: BP 110/52; BP 140/72
--- NOTE | 2018-10-27 07:02 | PCM.CR.ITP ---
Exercise - 60-Day Assessment - Visit Date of Eval: 10/27/18 Session #:: 23 - 100% compliance! - Stages of Change Stages of Change:: Action - Physician Prescribed Exercise Modalities: Treadmill, Rower, Airdyne, NuStep Frequency (days/week): 3 Duration (Minutes):: 30-45 Intensity: 60-80% age predicted maximum heart rate reserve METs - Progression: 0.5-1.0 MET, RPE 11-14 WEEK: 8.0 Target Heart Rate:: 97-127 w/ max HR 94 - Hypertension Resting Blood Pressure:: 80/50 Peak Exercise Blood Pressure:: 110/70 Medication Changes:: No - Intervention Home Exercise/Activity Goal:: Moderate Exercise 30 min/day x 5 days/wk - Education Goals:: Warm-up, RPE RON Scale, S/S, Safe Exercise, Self-Monitoring - Exercise Program Goals Exercise Program Goals: Aerobic Activity >30 min Nutrition - 60-Day Assessment - Program Goals Nutrition Program Goals: LDL <70. Total Cholesterol <200. HDL >45. Triglycerides <150. HgbA1C <7%. BMI <25 - Visit Date of Eval: 10/27/18 - Stages of Change Stages of Change:: Action - Lipids Has the patient seen the dietitian?: No - Diabetes Diabetes:: No - Weight Management Weight:: 164 lb - Intervention Referral to dietitian:: No Referral to Diabetic Clinic:: No Will attend diet classes:: Yes - Education Attended class for:: Healthy eating Tobacco - 60-Day Assessment - Program Goals Tobacco Program Goals: Complete smoking cessation. Attend education classes. Improve Knowledge Test score - Stage of Change Stages of Change:: Action - Learning Barriers Learning Barriers: Participates in education, Change in behavior - Family Support Do you have family support?: Yes - Tobacco Use Tobacco Use: Non-smoker Do you use smokeless tobacco?: No - Intervention Education Schedule Given:: Yes - Education Attended class for:: Coronary artery disease, Risk factors, Sexuality, Medical compliance, Cardiac A&P, Angina signs & symptoms Psychosocial - Initial Assess - Target Goals Target Goals: Assess presence or absence of depression. Using a valid screening tool, maximizes coping skills. Positive support system - Psychosocial Test Tool Used:: HANDS Depression Questionnaire - Assistive Devices Fall Risk Assessed:: Yes Psychosocial - 60-Day Assess - Target Goals Target Goals: Assess presence or absence of depression. Using a valid screening tool, maximizes coping skills. Positive support system - Stages of Change Stages of Change:: Action - Psychosocial Test Tool Used:: HANDS Depression Questionnaire - Intervention PS - Interventions: Yes Attend Stress Management Classes, No Referral to Mental Health, No Referral to [facility] Case Management, No Referral to Physician, No Uses Stress Management Skills - Education Attended classes for:: Coping techniques, Signs & symptoms of depression, Stress management, Relaxation techniques - Patient/Program Goal Preventative Medication(s):: Aspirin, Clopidogrel, Beta dennis, Statin/lipid - Assistive Devices Assistive Devices:: None Fall Risk Assessed:: Yes Patient Health Questionnaire 60-Day Re-eval Assessment 1. Little interest or pleasure in doing things: Not at all 2. Feeling down, depressed, or hopeless: Not at all 3. Trouble falling or staying asleep, or sleeping too much: Not at all 4. Feeling tired or having little energy: Not at all 5. Poor appetite or overeating: Not at all 6. Feeling bad about yourself -- or that you are a failure or have let yourself or your family down: Not at all 7. Trouble concentrating on things, such as reading the newspaper or watching television: Not at all 8. Moving or speaking so slowly that other people could have noticed. Or the opposite - being so fidgety or restless that you have been moving around a lot more than usual: Not at all 9. Thoughts that you would be better off , or of hurting yourself in some way: Not at all Total Score: 0 Self-Efficacy 60-Day Re-eval Assessment We would like to know how confident you are in doing certain activities. Please select your confidence level for:: Select your confidence level for the following using the scale 1-10 where 1 is not at all confident and 10 is totally confident. Your score is the average of all 6 responses. Fatigue: How confident are you that you can keep the fatigue caused by your disease from interfering with the things you want to do? Select Number: 10 Physical Discomfort or Pain: How confident are you that you can keep the physical discomfort or pain of your disease from interfering with the things you want to do? Select Number: 10 Emotional Distress: How confident are you that you can keep the emotional distress caused by your disease from interfering with the things you want to do? Select Number: 10 Other Symptoms or Health Problems: How confident are you that you can keep other symptoms or health problems from interfering with the things you want to do? Select Number: 10 Different Tasks and Activities: How confident are you that you can do the different tasks and activities needed to manage your health condition so as to reduce your need to see a doctor? Select Number: 10 Medication: How confident are you that you can do things other than just taking medication to reduce how much your illness affects your everyday life? Select Number: 10 Total Score:: 10
[2018-10-27 07:04] VITALS: BP 110/70; BP 80/50
== END 2018-11-19 23:59 ==
LOC: CR 09:15
PROVIDERS: Family Provider Family Medicine; PCP Family Medicine; Referring Provider Internal Medicine Cardiovascular Disease; Visit Provider Internal Medicine Cardiovascular Disease
DX: I49.1 Atrial premature depolarization (principal)
CPT/HCPCS: 93798

== ENCOUNTER 2018-11-24 09:15 | Outpatient (RCR) | payer MEDICARE, OTHER, SELFPAY ==
[2018-11-12 11:10] VITALS: BMI 24.2
[2018-11-20 00:50] VITALS: BP 110/70; BP 80/50
--- NOTE | 2018-11-26 08:19 | PCM.CR.ITP ---
General Information - General Information Admitting Diagnosis: heart valve repair replace - Education/Goals Barriers to Learning: None Cardiac Rehabilitation Goals: 1. Maintain the individual as the primary focus of care. 2. To improve the patient's quality of life. 3. Identification of cardiac risk factors and provide cardiac risk factor management. 4. Enhance the psychosocial status of the patient. 5. Reconditioning enough to allow the patient to resume customary activities. 6. Control symptoms of cardiac disease Scale for measuring improvement of personal goals: Enter appropriate number in Comments. 2 = Unchanged. 3 = Slightly Better. 4 = Moderate Improvement. 5 = Met my Goal Exercise - 90-Day Assessment - Visit Date of Eval: 11/26/18 Session #:: 35 - Stages of Change Stages of Change:: Action - Physician Prescribed Exercise Modalities: Treadmill, Airdyne, NuStep Frequency (days/week): 3 Duration (Minutes):: 30-45 Intensity: 60-80% age predicted maximum heart rate reserve METs - Progression: 0.5-1.0 MET, RPE 11-14 WEEK: 9 Target Heart Rate:: 97-127 Max HR 97 - Hypertension Resting Blood Pressure:: 106/68 Peak Exercise Blood Pressure:: 116/60 - Intervention Home Exercise/Activity Goal:: Sitting Time <3 hrs/day - Education Goals:: Warm-up, RPE RON Scale, S/S, Safe Exercise, Self-Monitoring - Exercise Program Goals Exercise Program Goals: Aerobic Activity >30 min, B/P <130/80 Nutrition - 90-Day Assessment - Program Goals Nutrition Program Goals: LDL <70. Total Cholesterol <200. HDL >45. Triglycerides <150. HgbA1C <7%. BMI <25 - Visit Date of Eval: 11/26/18 - Stages of Change Stages of Change:: Action - Weight Management Weight:: 74.162 kg - Intervention Referral to dietitian:: No Referral to Diabetic Clinic:: No Will attend diet classes:: Yes - Education Attended class for:: Signs & symptoms of hypoglycemia, Signs & symptoms of hyperglycemia, Relate diabetes to coronary artery disease, Healthy eating Tobacco - 90-Day Assessment - Program Goals Tobacco Program Goals: Complete smoking cessation. Attend education classes. Improve Knowledge Test score - Stage of Change Stages of Change:: Action - Learning Barriers Learning Barriers: Participates in education - Family Support Do you have family support?: Yes - Tobacco Use Tobacco Use: Non-smoker - Intervention Smoking Cessation Referral:: No Individual Education/Counseling:: No Education Schedule Given:: Yes - Education Attended class for:: Treating Heart Disease, How The Heart Works, What it means to have Heart Disease, How Coronary Artery Disease is Diagnosed, Heart Procedures, What Heart Medications Do, Risk Factors & Modifications, Living an Active Life, Nutrition, Emotions & Heart Disease, Stress Management & Relaxation, Sleep Disorders & Heart Disease Psychosocial - Initial Assess - Target Goals Target Goals: Assess presence or absence of depression. Using a valid screening tool, maximizes coping skills. Positive support system - Psychosocial Test Tool Used:: HANDS Depression Questionnaire - Assistive Devices Fall Risk Assessed:: Yes Psychosocial - 90-Day Assess - Target Goals Target Goals: Assess presence or absence of depression. Using a valid screening tool, maximizes coping skills. Positive support system - Stages of Change Stages of Change:: Action - Psychosocial Test Tool Used:: HANDS Depression Questionnaire - Intervention PS - Interventions: Yes Attend Stress Management Classes, Yes Uses Stress Management Skills, No Referral to Mental Health, No Referral to [facility] Case Management, No Referral to Physician - Education Attended classes for:: Coping techniques, Signs & symptoms of depression, Stress management, Relaxation techniques - Assistive Devices Assistive Devices:: None Fall Risk Assessed:: Yes Patient Health Questionnaire 90-Day Re-eval Assessment 1. Little interest or pleasure in doing things: Several days 2. Feeling down, depressed, or hopeless: Not at all 3. Trouble falling or staying asleep, or sleeping too much: More than half the days 4. Feeling tired or having little energy: Several days 5. Poor appetite or overeating: Several days 6. Feeling bad about yourself -- or that you are a failure or have let yourself or your family down: Several days 7. Trouble concentrating on things, such as reading the newspaper or watching television: Several days 8. Moving or speaking so slowly that other people could have noticed. Or the opposite - being so fidgety or restless that you have been moving around a lot more than usual: Not at all 9. Thoughts that you would be better off , or of hurting yourself in some way: Not at all How difficult have these problems made it for you to do your work, take care of things at home, or get along with other people?: Not difficult at all Total Score: 7 Self-Efficacy 90-Day Re-eval Assessment We would like to know how confident you are in doing certain activities. Please select your confidence level for:: Select your confidence level for the following using the scale 1-10 where 1 is not at all confident and 10 is totally confident. Your score is the average of all 6 responses. Fatigue: How confident are you that you can keep the fatigue caused by your disease from interfering with the things you want to do? Select Number: 8 Physical Discomfort or Pain: How confident are you that you can keep the physical discomfort or pain of your disease from interfering with the things you want to do? Select Number: 9 Emotional Distress: How confident are you that you can keep the emotional distress caused by your disease from interfering with the things you want to do? Select Number: 8 Other Symptoms or Health Problems: How confident are you that you can keep other symptoms or health problems from interfering with the things you want to do? Select Number: 8 Different Tasks and Activities: How confident are you that you can do the different tasks and activities needed to manage your health condition so as to reduce your need to see a doctor? Select Number: 8 Medication: How confident are you that you can do things other than just taking medication to reduce how much your illness affects your everyday life? Select Number: 8 Total Score:: 8
[2018-11-26 08:23] VITALS: BP 106/68; BP 116/60
== END 2018-11-24 09:39 | disposition home or self-care (01) ==
LOC: CR 09:15
PROVIDERS: Family Provider Family Medicine; PCP Family Medicine; Referring Provider Internal Medicine Cardiovascular Disease; Visit Provider Internal Medicine Cardiovascular Disease
DX: I49.1 Atrial premature depolarization (principal)
CPT/HCPCS: 93798

== ENCOUNTER → 2018-11-25 | Outpatient (CLI) | payer MEDICARE, OTHER, SELFPAY ==
[2018-11-12 11:10] VITALS: BMI 24.2
== END | disposition home or self-care (01) ==
LOC: SL 20:16
PROVIDERS: Family Provider Family Medicine; PCP Family Medicine; Referring Provider Internal Medicine Critical Care Medicine; Visit Provider Internal Medicine Critical Care Medicine
DX: G47.10 Hypersomnia, unspecified (principal)
CPT/HCPCS: 95810

== ENCOUNTER → 2018-12-29 21:36 | Outpatient (CLI) | payer MEDICARE, OTHER, SELFPAY ==
[2018-11-26 13:17] VITALS: BMI 23.9
== END ==
PROVIDERS: Family Provider Family Medicine; PCP Family Medicine; Referring Provider Nurse Practitioner Acute Care; Visit Provider Nurse Practitioner Acute Care
DX: G47.33 Obstructive sleep apnea (adult) (pediatric) (principal)
CPT/HCPCS: 95811

== ENCOUNTER → 2019-02-09 13:29 | Outpatient (CLI) | payer MEDICARE, OTHER, SELFPAY ==
[2019-02-02 10:04] VITALS: BMI 23.9
[2019-02-09 15:28] LABS: Absolute Neutrophil Count 3.8 X10^3/uL (2.0-7.7); Basophil# 0.11 X10^3/uL; Basophil% 1.7 % (0-1); Eosinophil# 0.43 X10^3/uL; Eosinophils% 6.6 % (0-5); Hematocrit 38.5 % (40-54); Hemoglobin 12.6 g/dL (13.0-16.5); Mean Corp Hgb Conc 32.7 g/dL (32-36); Mean Corpuscular Hgb 29.9 pg (27.0-32.0); Mean Corpuscular Volume 91.2 fL (80-94); Mean Platelet Vol. 10.3 fl (6.2-12.0); Monocyte# 0.48 X10^3/uL; Monocyte% 7.4 % (0-10); NRBC Flagged by Analyzer 0 % (0-5); Neutrophil % 58.1 % (47-70); Platelet Count 209 K/mm3 (150-450); RBC Distribution Width CV 12.9 % (11.6-14.6); RBC Distribution Width SD 42.9 fl (35.1-43.9); Red Blood Count 4.22 M/mm3 (4.6-6.2); White Blood Count 6.5 K/mm3 (4.4-11.0)
[2019-02-09 16:18] LABS: Ferritin 74 ng/mL (26-388); Iron 103 ug/dL (65-175); Thyroid Stim Hormone (TSH) 1.93 uIU/mL (0.358-3.74); Vitamin D,25 Hydroxy 26.3 ng/mL (29.95-100.01)
== END ==
PROVIDERS: Family Provider Family Medicine; PCP Family Medicine; Visit Provider Family Medicine
DX: E55.9 Vitamin D deficiency, unspecified (principal); D64.9 Anemia, unspecified; E03.9 Hypothyroidism, unspecified
CPT/HCPCS: 36415; 82306; 82728; 83540; 84443; 85025

== ENCOUNTER → 2019-03-02 08:13 | Outpatient (CLI) | payer MEDICARE, OTHER, SELFPAY ==
[2019-02-02 10:04] VITALS: BMI 23.9
--- NOTE | 2019-03-02 14:08 | PFTCOMP ---
COMPLETE PULMONARY FUNCTION TEST INTERPRETATION Brief HPI: Patient is a 73 year old male, currently under the care of myself, who presents to [facility] for complete pulmonary function tests secondary to diagnosis of dyspnea. Respiratory therapist reports good effort and reproducible results. Interpretation: Forced expiration spirometry shows a mild large airways obstructive ventilatory defect with an FEV1 of 95% predicted. There is no significant bronchodilator response by strict ATS criteria. Spirograms are of good quality and plateau slowly, indicating slowly emptying areas of the lungs. The respiratory flow volume loop shows decreased expiratory flow rates at all lung volumes consistent with airway obstruction. Lung volumes by body plethysmography show a normal total lung capacity at 6.55 L, 105% predicted. All other lung volumes are within normal limits. Diffusion capacity by carbon monoxide is normal at 121% predicted. The airway resistance is normal. No previous pulmonary function tests were available for review. Impression: Irreversible mild large airways obstructive ventilatory defect with preserved lung volumes and diffusing capacity.
== END ==
PROVIDERS: Family Provider Family Medicine; PCP Family Medicine; Referring Provider Nurse Practitioner Acute Care; Visit Provider Nurse Practitioner Acute Care
DX: R06.00 Dyspnea, unspecified (principal)
CPT/HCPCS: 94060; 94726; 94729

== ENCOUNTER → 2019-03-04 10:21 | Outpatient (CLI) | payer MEDICARE, OTHER, SELFPAY ==
[2019-02-02 10:04] VITALS: BMI 23.9
--- NOTE | 2019-03-04 | TOBX_PTH ---
PATIENT: BRUCE BANUELOS [facility] U#:[id number] AGE/SX: 79/M ROOM: RE03/04/[address]: Dr. Carlos Nichols DDS : 1945 BED: DIS: SPEC #: [id number] RECD: 03/04/19 10:12 STATUS: DELFIN JENS #: [id number] HILDA: 03/04/19 00:[address]: Carlos Nichols DEPT: SURGICAL PATHOLOGY RECD BY: Ovidio Saeed ENTERED: 03/04/19 11:00 SP TYPE: TONGUE BX OTHR DR: Dr. 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 Perineural invasion not seen. Marked subepithelial chronic inflammation. Hyperkeratosis and parakeratosis. See comment. SJ:blanco 03/05/19 COMMENT Margins are negative for invasive carcinoma. Squamous cell carcinoma in situ focally present at one peripheral margin of the specimen. Immunohistochemistry ([id number]) for surrogate HPV marker (p16) will be performed and results will be reported separately. Please make reference to previous specimens ([id number]) right lateral tongue, biopsy with diagnosis of extensive hyperkeratosis, focal parakeratosis and acanthosis, negative for malignancy and ([id number]) left tongue, biopsy with diagnosis of squamous mucosa with subepithelial chronic inflammation, focal parakeratosis and hyperkeratosis and negative for malignancy. Case has been reviewed in consultation with Dr. Rendon who concurs with the above diagnosis. IDC:AM MICROSCOPIC DESCRIPTION Slides are reviewed. GROSS DESCRIPTION Received in fixative is one container labeled with the patient's name and designated tongue. The specimen consists of a piece of schrader mucosal tissue measuring 0.8 x 0.5 x 0.3 cm. The specimen is inked and submitted entirely in one cassette. It will be bisected at the time of embedding. / SJ:rg 03/04/19 TC:0 CPT: 57665 ADDENDUM ADDENDUM ADDENDUM ADDENDUM ADDENDUM ADDENDUM ADDENDUM ADDENDUM ADDENDUM ADDENDUM ADDENDUM 03/26/2019 12:50 ADDENDUM 03/26/2019 12:50 ADDENDUM 03/26/2019 12:50 ADDENDUM 03/26/2019 12:50 ADDENDUM 03/26/2019 12:50 This addendum is added to incorporate an outside pathology consultation report. The case was examined at [facility] (#[id number]) and the following diagnosis was rendered. Tongue, biopsy: Invasive keratinizing squamous cell carcinoma, moderately to poorly differentiated arising in a background of high-grade squamous dysplasia/squamous cell carcinoma in situ. Please see complete above mentioned consultation report in EMR
--- NOTE | 2019-03-04 | IMM_PTH ---
PATIENT: BRUCE BANUELOS LOC: [facility] U#:[id number] AGE/SX: 79/M ROOM: RE03/04/[address]: Dr. Carlos Nichols DDS : 1945 BED: DIS: SPEC #: [id number] RECD: 03/05/19 10:09 STATUS: DELFIN REAlfred #: [id number] HILDA: 03/04/19 00:[address]: Carlos Nichols DEPT: IMMUNOHISTOCHEMISTRY RECD BY: Amy Hinds ENTERED: 03/05/19 10:10 SP TYPE: IMMUNO OTHR DR: Dr. Praveen Brown MD Tissues: Tongue, NOS Procedures: p16 (initial) PHYSICIAN & INSTITUTION [place] [id number] SPECIMEN INFORMATION: Tissue Source: Tongue biopsy Clinical Info: Tongue lesion Specimen Number: [id number] CPT code: 50292 METHODOLOGY: Deparaffinized sections of prefer/formalin-fixed tissue or PAP/DQ stained slides are incubated with monoclonal/polyclonal antibodies/oligonucleotide probes. Localization is made via biotin free immunoperoxidase method. Appropriate controls are performed and reacted as expected. Results on target cell population are indicated in the following table: RESULTS: ANTIBODY / CLONE RESULT P16 (E6H4) negative These tests were developed and their performance characteristics determined by [facility]. They may not have been cleared or approved by the U.S. Food and Drug Administration. The FDA has determined that such clearance or approval is not necessary. The above immunohistochemical/dualISH markers are ordered and reviewed by the Pathologist. INTERPRETATION: Tongue biopsy: Invasive squamous cell carcinoma. Squamous cell carcinoma in situ. SJ:blanco 03/06/19
== END ==
PROVIDERS: Family Provider Family Medicine; PCP Family Medicine; Referring Provider Dentist Oral and Maxillofacial Surgery; Visit Provider Dentist Oral and Maxillofacial Surgery
DX: C02.9 Malignant neoplasm of tongue, unspecified (principal)
CPT/HCPCS: 88305; 88342

== ENCOUNTER → 2019-04-02 11:00 | Outpatient (CLI) | payer MEDICARE, OTHER, SELFPAY ==
[2019-03-16 07:54] VITALS: BMI 25.1
== END ==
PROVIDERS: Family Provider Family Medicine; PCP Family Medicine; Referring Provider Nurse Practitioner Acute Care; Visit Provider Nurse Practitioner Acute Care
DX: G47.33 Obstructive sleep apnea (adult) (pediatric) (principal)
CPT/HCPCS: 98960; G0463

== ENCOUNTER → 2019-10-27 11:00 | Outpatient (CLI) | payer MEDICARE, OTHER, SELFPAY ==
[2019-10-20 05:37] VITALS: BMI 25.1
== END ==
PROVIDERS: PCP Family Medicine; Referring Provider Internal Medicine Critical Care Medicine; Visit Provider Internal Medicine Critical Care Medicine
DX: G47.30 Sleep apnea, unspecified (principal)
CPT/HCPCS: 98960; G0463

== ENCOUNTER → 2020-03-21 09:37 | Outpatient (CLI) | payer MEDICARE, OTHER, SELFPAY ==
[2020-02-29 14:14] VITALS: BMI 25.2
[2020-03-21 12:25] LABS: AST(SGOT) 19 U/L (15-37); Alanine Aminotransfer ALT/SGPT 24 U/L (16-61); Albumin, Serum 3.7 g/dL (3.2-5.0); Alkaline Phosphatase 71 U/L (45-117); Bilirubin, Direct 0.14 mg/dL (0.00-0.30); Cholesterol 183 mg/dL (200); Globulin 3.6 g/dL (2.2-4.2); High Density Lipoprotein 55 mg/dL; Protein, Total 7.3 g/dL (6.4-8.2); Triglycerides 89 mg/dL; Very Low Density Lipoprotein 18 mg/dL (5-40)
== END ==
PROVIDERS: PCP Family Medicine; Referring Provider Internal Medicine Cardiovascular Disease; Visit Provider Internal Medicine Cardiovascular Disease
DX: E78.00 Pure hypercholesterolemia, unspecified (principal)
CPT/HCPCS: 36415; 80061; 80076

== ENCOUNTER → 2020-10-13 11:00 | Outpatient (CLI) | payer MEDICARE, OTHER, SELFPAY ==
[2020-10-04 05:44] VITALS: BMI 25.9
== END ==
PROVIDERS: PCP Family Medicine; Referring Provider Internal Medicine Critical Care Medicine; Visit Provider Internal Medicine Critical Care Medicine
DX: G47.33 Obstructive sleep apnea (adult) (pediatric) (principal)
CPT/HCPCS: 98960; G0463

== ENCOUNTER → 2022-10-02 | Outpatient (CLI) | payer MEDICARE, OTHER, SELFPAY ==
--- NOTE | 2022-10-02 12:39 | ECHOD_ITS ---
Reason For Study: Pre-chemo/radiation, Bioprosthetic AV Procedure This was a 2D Doppler, Color Flow transthoracic echocardiogram. Myocardial strain analysis was performed in this exam to aid in the assessment of cardiac function. Exam performed in department. Left Ventricle Normal LV size. Mid cavitary false tendon noted. Left ventricular systolic function is normal. The estimated ejection fraction is 70 %. No regional wall motion abnormalities noted. Right Ventricle Normal RV size. Normal systolic function. Atria The left atrium is mildly enlarged. Normal right atrium. Mitral Valve Bileaflet diffuse mitral valve thickening. Mild mitral valve prolapse. Moderate (2+) anteriorly directed mitral valve insufficiency. Tricuspid Valve Normal tricuspid valve. Mild (1+) tricuspid valve insufficiency. Pulmonary artery systolic pressure is 33 mmHg. Aortic Valve Peak aortic valve gradient 39 mmHg. Mean aortic valve gradient 20 mmHg. Mild aortic stenosis. Normal prosthetic aortic valve. Pulmonic Valve Normal pulmonic valve. Trivial pulmonic valve insufficiency. Great Vessels Mild to moderately dilated aortic root. The pulmonary artery is normal size. Normal inferior vena cava. Pericardium/Pleural No pericardial effusion. MMode/2D Measurements & Calculations LVIDd: 4.5 cm IVSd: 1.1 cm LVOT diam: 2.1 cm LVIDs: 2.1 cm LVPWd: 1.1 cm LVOT area: 3.5 cm2 RVDd: 3.6 cm FS: 52.3 % Ao root diam: 4.0 cm LAV(MOD-bp): 75.2 ml LVAd ap4: 27.4 cm2 LAV(MOD-bp) Indexed: 40.4 ml/m2 LVLd ap4: 7.5 cm LAV(MOD-sp2): 74.0 ml EDV(MOD-sp4): 84.9 ml LAV(MOD-sp4): 66.5 ml EDV(sp4-el): 85.3 ml LVAs ap4: 12.8 cm2 LVLs ap4: 6.0 cm ESV(MOD-sp4): 24.0 ml ESV(sp4-el): 22.9 ml EF(MOD-sp4): 71.7 % EF(sp4-el): 73.2 % LVAd ap2: 30.2 cm2 SV(MOD-sp4): 60.9 ml SV(MOD-sp2): 73.4 ml LVLd ap2: 8.0 cm EDV(MOD-sp2): 96.3 ml EDV(sp2-el): 96.8 ml LVAs ap2: 13.4 cm2 LVLs ap2: 6.9 cm ESV(MOD-sp2): 22.9 ml ESV(sp2-el): 21.8 ml EF(MOD-sp2): 76.2 % SV(sp4-el): 62.4 ml LA dimension(2D): 4.8 cm LA A4 area: 23.6 cm2 RA A4 area: 20.4 cm2 TAPSE: 1.8 cm Time Measurements MV dec time: 0.21 sec Doppler Measurements & Calculations MV E max payam: 108.9 cm/sec Lat Peak E' Payam: 9.3 cm/sec Med Peak E' Payam: 9.9 cm/sec MV A max payam: 71.8 cm/sec E/E' lat: 11.7 E/E' med: 11.0 MV E/A: 1.5 Ao V2 max: 311.1 cm/sec LV V1 max: 164.2 cm/sec MV dec slope: 519.1 cm/sec2 Ao max P.7 mmHg LV V1 max P.8 mmHg Ao V2 mean: 207.7 cm/sec LV V1 mean P.9 mmHg Ao mean P.8 mmHg LV V1 mean: 113.4 cm/sec Ao V2 VTI: 62.6 cm LV V1 VTI: 34.9 cm AV (velocity ratio): 0.56 TRICIA(I,D): 1.9 cm2 TRICIA(V,D): 1.8 cm2 SV(LVOT): 120.8 ml PA V2 max: 112.8 cm/sec TR max payam: 277.7 cm/sec TR max P.9 mmHg ECHO/Echo Complete Interpretation Summary Normal LV size. Left ventricular systolic function is normal. Mid cavitary false tendon noted. The estimated ejection fraction is 70 %. Mean aortic valve gradient 20 mmHg. Moderate (2+) anteriorly directed mitral valve insufficiency. Pulmonary artery systolic pressure is 33 mmHg. Normal prosthetic aortic valve. Mild to moderately dilated aortic root. The left atrium is mildly enlarged. The global longitudinal strain is normal. The global longitudinal strain = -23 % (normal). Ordering Physician: Glnyn Penny/Nate Jordan Referring Physician: Glynn Penny Performed By: Blanquita Ventura TOVA
== END | disposition home or self-care (01) ==
LOC: CVS 12:36
PROVIDERS: Referring Provider Nurse Practitioner Family; Visit Provider Nurse Practitioner Family
DX: Z95.3 Presence of xenogenic heart valve (principal); Z98.890 Other specified postprocedural states
CPT/HCPCS: 93306

== ENCOUNTER 2023-03-12 09:00 | Outpatient (RCR) | payer MEDICARE, OTHER, SELFPAY ==
--- NOTE | 2023-02-19 12:01 | HP.PTEVAL ---
Patient's Visit Information Visit Information Visit Information: BRUCE BANUELOS is a 77 year old M referred to Physical Therapy by ROSARIO JARRELL with a diagnosis of L neck and shoulder pain. 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 Pt notes he had 30 lymph nodes removed and had a lot of radiation. Pt notes this resulted in his L face losing some motor function, and his L shoulder losing ROM. Pt denies sleep difficulty at this time secondary to neck or [id number] pain. Pt notes not tingling or numbness in L UE at this time. Pt reports he is limited with most IADL's which require him to lift overhead at this time. Pt reports he is not in pain at this time. Pt is R hand dominant. 0/10 pain at this time. Pain L shoulder: Pain Intensity (Out of 10): 0 Pain Intensity Range: 0 Objective Objective: Neuro:B UE sensation is WNL to light touch. B bicipital reflex= 2/3 Palpation: No soreness throughout. More prominant spine of the scapula on L shoulder. 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 For Medicare and Medicare HMO plans, please review the plan of care and approve it. It will need to be FAXED BACK to us at [phone] for Medicare purposes. For Medicare only, by signing this I certify the plan of care. Please let me know if there are questions or concerns regarding this plan of care. Physician Signature: Date:
--- NOTE | 2023-03-12 09:36 | HP.PTDCSUM_ITS ---
Discharge Summary D/C summary: It has been my pleasure to treat BRUCE BANUELOS referred by ROSARIO JARRELL, with the diagnosis of L neck and shoulder pain for a total of 7 visit(s). Discharge Date: Please see the following information for a summary of their discharge status. Subjective Subjective: Mild pain today Pain L shoulder: Pain Intensity (Out of 10): 1 Overall Improvement % Improvement: 60 Objective Objective/Function: L shoulder ROM: flex= 140, abd= 130 degrees Pt is now I with HEP L shoulder pain ranges from 1-5/10 Rx goals achieved Goals Goal 1:: Pt will be I with HEP in 2-3 weeks Goal Progress: Goal Met Goal 2:: Increase L shoulder flex and abd ROM x 30 degrees to aid with overhead lifting Goal Progress: Goal Met Plan Plan: Discharge to [facility] D/C Information d/c sentence: If there are questions or concerns regarding this patient's physical therapy, please feel free to call me at [phone]. Thank you for the referral of this patient. Sincerely, Rene Blount, PT, ATC Balance/Gait/Functional tests Balance/Special Test Scores Oswestry Neck Score: 4 Quick DASH Score: 11.3625 Improvement % Improvement: 60
== END 2023-03-12 09:50 | disposition home or self-care (01) ==
LOC: PT 09:00
DX: C06.9 Malignant neoplasm of mouth, unspecified (principal); M25.512 Pain in left shoulder; Z98.890 Other specified postprocedural states
CPT/HCPCS: 97110; 97161; 97164